=== PATIENT | female | born 1965 | race Caucasian/White ===

== ENCOUNTER → 2019-04-29 | Outpatient (CLI) | payer SELFPAY | END | disposition home or self-care (01) | PROVIDERS: Referring Provider Urology; Visit Provider Urology | DX: R31.9 Hematuria, unspecified (principal) | CPT/HCPCS: 87086; 87088 ==

== ENCOUNTER → 2019-05-07 | Outpatient (CLI) | payer SELFPAY | END | disposition home or self-care (01) | LOC: LAB.FUTURE 09:03 | PROVIDERS: Family Provider Family Medicine; PCP Family Medicine; Referring Provider Urology; Visit Provider Urology | DX: N39.0 Urinary tract infection, site not specified (principal) | CPT/HCPCS: 87077; 87086; 87088; 87186 ==

== ENCOUNTER → 2019-05-23 | Outpatient (CLI) | payer MEDICAID, SELFPAY ==
--- NOTE | 2019-05-23 14:32 | RAD_ITS ---
STUDY: X-RAY - ABDOMEN/PELVIS REASON FOR EXAM: Female, 54 years old. Kidney stones, left flank pain TECHNIQUE: Single AP view of the abdomen / pelvis. COMPARISON: None. FINDINGS: Lung bases are out of the tiviv-lc-dsns. There is a left-sided double-J stent which appears to be in appropriate position. There are small clusters of punctate calcifications in the kidney. One cluster measuring up to 5.5 mm the lower pole cluster measuring 1.0 cm. The right kidney is partially obscured. There are small calcific densities seen overlying the right side of the pelvis which may represent phleboliths versus stones. There is an unremarkable bowel gas pattern. There is no demonstrated free abdominal air. Normal soft tissue structures. Normal visualized osseous structures. RAD/Abdomen Single View IMPRESSION: Phleboliths versus ureteral stones overlying the right sacrum. Double-J stent. Multiple small stones left kidney as detailed above. Electronically Signed: Rowan Zee MD at 12:30 EDT Tel , Service support ,
== END | disposition home or self-care (01) ==
LOC: RAD.FUTURE 14:20
PROVIDERS: Family Provider Family Medicine; PCP Family Medicine; Referring Provider Urology; Visit Provider Urology
DX: N20.0 Calculus of kidney (principal)
CPT/HCPCS: 74018

== ENCOUNTER 2019-05-31 09:53 | Day surgery (SDC) | payer MEDICAID, SELFPAY ==
[2019-05-31 10:05] VITALS: BP 143/92; PULSE 77; RESP 16; TEMP 36.6; O2SAT 100; BMI 37.3
[2019-05-31] MEDS: Lactated Ringers 1,000 ML 100 ML IV ×2 (10:16→13:43)
[2019-05-31] MEDS: Lubricating Jelly 60 GM Tube 30 GM TOPICAL (12:52)
--- NOTE | 2019-05-31 12:53 | PCM.DC.URO ---
Discharge Diet: Light diet - advance as tolerated Discharge Activity: Return to Normal Activity Allergies/Adverse Reactions: Allergies erythromycin base Allergy (Verified 05/31/19 09:58) Hives Sulfa (Sulfonamide Antibiotics) Allergy (Verified 05/31/19 09:58) Hives Medications to take at Discharge Amlodipine [Norvasc] 10 mg PO DAILY 05/29/19 Metoprolol Tartrate [Lopressor (Beta [place])] 100 mg PO DAILY 05/29/19 Ciprofloxacin [Cipro] 500 mg PO BID #6 tab 05/31/19 Hydrocodone/Acetaminophen [[place] 5-325 Tablet] 1 ea PO Q4H PRN PRN 5 Days #20 tab 05/31/19 The following prescriptions were given: Ciprofloxacin [Cipro] 500 mg PO BID #6 tab Prescription Printed Hydrocodone/Acetaminophen [[place] 5-325 Tablet] 1 ea PO Q4H PRN PRN 5 Days #20 tab PRN Reason: Pain Prescription Printed Primary Care Physician: Anil Law MD [Primary Care Provider] - Test Results: Test results from this visit will be discussed in further detail at your follow-up appointment, if applicable. Please Follow Up With: Ja Field MD When: please call to make an appointment.
[2019-05-31] MEDS: Cefazolin 2 GM in 0.9% Normal Saline 100 ML IV (12:54)
[2019-05-31] MEDS: Ketorolac 15 MG/ML Vial IV (13:01)
--- NOTE | 2019-05-31 13:24 | OP.PCM_ITS ---
Report of Operation Date of Procedure: 05/31/19 Pre-Operative Diagnosis: Status post ESWL of large left renal calculi with multiple fragments Post-Operative Diagnosis: The same Surgery/Procedure Performed:: Second stage left ureteroscopy laser lithotripsy of stones, interpretation of fluoroscopic images retrograde pyelogram, left stent placement Description of Surgical Findings:: Indication this is a 54-year-old female had a very large stone in the left kidney underwent stent placement and shockwave lithotripsy on follow-up follow- up x-ray she still has significant stone fragments left in the kidney recommended we proceed with a second stage ureteroscopy to treat the remaining fragments. Also will change the stent to a new stent. 54-year-old female taken back to the operating room at the smooth induction of general anesthesia she was placed in dorsolithotomy position the urethra vaginal area prepped and draped in usual sterile fashion, went into the bladder with a 21 [place] rigid cystourethroscope scope grabbed the existing stent pulled out the meatus advance a wire up the stent and then over the wire went in with a flexible ureteroscope I then inspected the upper pole midpole lower pole of the left kidney found some fragments in the upper pole these were treated with laser lithotripsy and then found some large fragments in the lower pole these were treated laser lithotripsy after all these fragments are treated very small pieces that should pass on their own then a retrograde pyelogram was performed interpreted the fluoroscopic images then worked my way down the ureter but a wire up on the left side and then over the wire I placed a new stent is a 6 [place]ian by 26 cm stent. Left the string of the stent for easy extraction patient will see us next week with an x-ray and will plan to remove the stent at that point. Type of Anesthesia:: General Drains: stent left - Admit VTE Documentation VTE Present on Admission: No VTE Mechan Device Prophylaxis: SCD's
[2019-05-31 13:31] VITALS: BP 123/82; BP 143/92; PULSE 73; RESP 16; TEMP 36.3; O2SAT 98
[2019-05-31 13:49] VITALS: BP 125/84; BP 143/92; PULSE 63; RESP 16; TEMP 36.3; O2SAT 100
[2019-05-31 14:26] VITALS: BP 143/92; BP 157/85; PULSE 71; RESP 18; O2SAT 99
== END 2019-05-31 14:40 | disposition home or self-care (01) ==
LOC: SDC 09:53 → AC 09:54
PROVIDERS: Family Provider Family Medicine; PCP Family Medicine; Referring Provider Urology; Visit Provider Urology
PROC: 0TJ98ZZ Inspection of Ureter, Via Natural or Artificial Opening Endoscopic (ICD-10-PCS; CPT 52352; principal; 2019-05-31 13:10)
DX: N20.0 Calculus of kidney (principal); I10 Essential (primary) hypertension; F17.200 Nicotine dependence, unspecified, uncomplicated; Z79.2 Long term (current) use of antibiotics; Z79.899 Other long term (current) drug therapy
CPT/HCPCS: 00873; 52356; 76000; J7120; C2617; J2405

== ENCOUNTER → 2019-06-04 | Outpatient (CLI) | payer MEDICAID, SELFPAY ==
[2019-05-31 10:05] VITALS: BMI 37.3
--- NOTE | 2019-06-04 08:23 | RAD_ITS ---
STUDY: X-RAY - ABDOMEN/PELVIS REASON FOR EXAM: Female, 54 years old. Left-sided kidney stones. TECHNIQUE: Single AP view of the abdomen / pelvis. COMPARISON: Comparison is made with prior study dated May 23, 2019. FINDINGS: Normal visualized lung bases. There is a moderate amount of colonic fecal material. A left-sided double-J stent catheter is seen. This is unchanged. Once again, cluster of the calcifications in the lower pole calyx of the left kidney. This appears to have decreased in size as compared to prior study. Normal soft tissue structures. Normal visualized osseous structures. RAD/Abdomen Single View IMPRESSION: Stable appearance of the left double-J stent catheter. Apparent decrease in density of the calculi seen in the lower pole calyx of the left kidney. Electronically Signed: Anselmo Cobian, at 11:02 EDT , Service support ,
== END | disposition home or self-care (01) ==
LOC: RAD 07:52
PROVIDERS: Family Provider Family Medicine; PCP Family Medicine; Referring Provider Urology; Visit Provider Urology
DX: N20.0 Calculus of kidney (principal)
CPT/HCPCS: 74018

== ENCOUNTER → 2019-07-16 | Outpatient (CLI) | payer MEDICAID, SELFPAY | END | disposition home or self-care (01) | PROVIDERS: Family Provider Family Medicine; PCP Family Medicine; Referring Provider Urology; Visit Provider Urology | DX: N39.0 Urinary tract infection, site not specified (principal) | CPT/HCPCS: 87077; 87086; 87088; 87186 ==

== ENCOUNTER → 2020-04-04 08:46 | Outpatient (CLI) | payer MEDICAID, SELFPAY ==
--- NOTE | 2020-04-04 08:51 | US_ITS ---
HISTORY: Swelling left upper volar forearm Ultrasound of the left upper arm in the region of swelling No priors Findings: No delineated soft tissue mass or fluid collection is noted in the area of swelling. US/Ext Non Vasc Limited/Soft Tiss IMPRESSION: No acute pathology. If symptoms persist consider MRI with contrast for further evaluation at 0355 Reported and signed by: Rowan Gómez DO Electronically Signed: Rowan Gómez DO at 3:54 EDT Tel , Service support ,
== END ==
PROVIDERS: PCP Nurse Practitioner Family
DX: R22.32 Localized swelling, mass and lump, left upper limb (principal)
CPT/HCPCS: 76882

== ENCOUNTER → 2020-04-10 08:18 | Outpatient (CLI) | payer MEDICAID, SELFPAY ==
[2020-04-10 08:55] LABS: Erythrocyte Sedimentation Rate 13 mm/hr (0-30)
[2020-04-10 08:58] LABS: Absolute Lymphocyte Count 2.86 X10^3/uL (0.83-4.51); Absolute Neutrophil Count 7.2 X10^3/uL (2.0-7.7); Basophil# 0.13 X10^3/uL; Basophil% 1.2 % (0-1); Eosinophil# 0.32 X10^3/uL; Eosinophils% 2.9 % (0-5); Hematocrit 44.5 % (37-47); Hemoglobin 14.7 g/dL (12.0-15.0); Lymphocyte # 2.86 X10^3/ul (4.0); Lymphocyte % 25.7 % (19-41); Mean Corpuscular Volume 90.8 fL (81-99); Mean Platelet Vol. 9.8 fl (6.2-12.0); Monocyte# 0.63 X10^3/uL; Monocyte% 5.7 % (0-10); NRBC Flagged by Analyzer 0 % (0-5); Neutrophil # 7.17 X10^3/uL (2.7-7.7); Neutrophil % 64.1 % (47-70); Platelet Count 361 K/mm3 (150-450); RBC Distribution Width CV 13.5 % (11.6-14.6); RBC Distribution Width SD 44.5 fl (35.1-43.9); White Blood Count 11.2 K/mm3 (4.4-11.0)
[2020-04-10 09:17] LABS: AST(SGOT) 11 U/L (15-37); Alanine Aminotransfer ALT/SGPT 23 U/L (13-56); Albumin, Serum 3.5 g/dL (3.2-5.0); Alkaline Phosphatase 93 U/L (45-117); Anion Gap 5 (5-15); BUN 15 mg/dL (7-18); BUN/Creat Ratio 18.6 RATIO (10-20); CPK Total, Creatine Kinase 104 U/L (26-192); Calcium,Total 8.5 mg/dL (8.5-10.1); Chloride 109 mmol/L (98-107); Creatinine, Serum 0.81 mg/dL (0.55-1.02); EST Glomerular Filtration Rate 78 mL/min (>60); Est Glom Filt Rate - Afr Amer 94 mL/min (>60); Globulin 3.4 g/dL (2.2-4.2); Glucose 94 mg/dL (74-106); Potassium 4.4 mmol/L (3.5-5.1); Protein, Total 6.9 g/dL (6.4-8.2); Sodium Level 141 mmol/L (136-145)
[2020-04-11 12:22] LABS: ANTINUCLEAR ANTIBODIES DIRECT Negative (Negative)
== END ==
PROVIDERS: Visit Provider Nurse Practitioner Family
DX: M54.5 Low back pain (principal); R21 Rash and other nonspecific skin eruption; F33.0 Major depressive disorder, recurrent, mild
CPT/HCPCS: 36415; 80053; 82550; 85025; 85652; 86038

== ENCOUNTER 2020-04-30 14:13 | Emergency (ER) | payer MEDICAID, SELFPAY ==
[2020-04-30 14:15] VITALS: BP 174/104; PULSE 105; RESP 20; TEMP 36.5; O2SAT 99; BMI 41.3
--- NOTE | 2020-04-30 15:24 | ED.VIS.GEN ---
History of Present Illness Chief Complaint: Upper Extremity Injury Informant: Patient Narrative: 5-year-old female presenting with left upper arm pain in the medial aspect of her bicep. She feels like it is swelling. She has been seen by her PCP who did do a superficial ultrasound and did not find any abscess or sign of infection. Patient concerned that it still swelling. She is told that she needs an MRI her insurance did declined this. Patient has not been in physical therapy for this pain. She is concerned she has something deeper in her arm. She does have full range of motion. She has no numbness or tingling but does have radiation of pain up and down her arm at times. Past Medical History - Allergies and Home Meds Allergies/Adverse Reactions: Allergies erythromycin base Allergy (Verified 04/30/20 14:14) Hives Sulfa (Sulfonamide Antibiotics) Allergy (Verified 04/30/20 14:14) Hives Primary Care Physician: Sheyla De Los Santos [Primary Care Provider] - Prior records reviewed: Yes Past Medical History: - - Hypertension Surgical History: noncontributory Lives: With Family Smoking Status: Current some day smoker Alcohol: None Drugs: None Review of Systems General: Denies: Chills, Fever, Sweats Eyes: Denies: Visual changes - bilaterally, Diplopia ENT: Denies: Bilateral ear pain, Left ear pain, Right ear pain, Rhinorrhea, Sore throat, -, - Cardiovascular: Denies: Chest pain, Palpitations Respiratory: Denies: Dyspnea, Cough, Dyspnea on exertion Gastrointestinal: Reports: Abdominal pain Musculoskeletal: Reports: - - Left upper arm pain really between the bicep and tricep Physical Exam Vital Signs/Narrative: Vital Signs Temp Pulse Resp BP Pulse Ox 04/30/20 14:15 97.7 F L 105 H 20 H 174/104 H 99 General: Well nourished Head: Normocephalic, Atraumatic Eyes: Perrl, EOMI Cardiovascular: Regular rate, Regular rhythm Respiratory: No distress, CTA bilaterally Back: Nontender Extremities: - - Patient has tenderness to palpation over the medial aspect of the area between the bicep and tricep. There is no obvious mass or fluctuance. Joo's test on the left arm is normal. He has normal sensation and motor strength. Skin: Normal color, No rash Neurological: Alert, Oriented x3 Psychological: Normal affect Diagnostic/Tx/Re-eval Clinical Impression(s) from Imaging Studies Upper Extremity CTA 04/30/20 17:13 IMPRESSION: Normal CTA of the left upper extremity Electronically Signed: Piero Worrell MD at 18:35 EDT , Service support , - Medical Decision Making Patient presents with left arm pain which is been bothering her for over a month. She is had a superficial ultrasound which did not identify anything. Her PCP recommended an MRI and insurance to cancel. She had lab work done which was normal on an outpatient basis. Today I performed an ultrasound as well as CT imaging of her left upper extremity which showed no acute process. It is unclear what the source of her pain is. She says she is a [employer] and she possibly could have hurt herself at work but does not remember an acute injury. At this point I recommended to her that she follow-up with her PCP and get into physical therapy. Unable to this plan. She is discharged home in stable condition. Impression: 1. Left arm pain ED Disposition - Plan for ED Patient: Disposition: Home or Assisted Living Instructions: ED ACHING MUSCLES Referrals: Kevon Stoner,Sheyla Lucas [Primary Care Provider] -
--- NOTE | 2020-04-30 15:38 | VDUE_ITS ---
Reason For Study: SWELLING Left Proximal Left jugular vein is spontaneous, widely patent, phasic, with no intraluminal echogenicity noted. Left subclavian vein is spontaneous, widely patent, phasic, with no intraluminal echogenicity noted. Left Arm Left axillary vein is spontaneous, patent, phasic, competent, compressible and demonstrates augmentation. Left brachial vein is compressible. Left cephalic vein is compressible. Left basilic vein is compressible. Left Lower Arm Left radial vein is compressible. Left ulnar vein is compressible. Prelim to Dr. Ashby. Interpretation Summary No evidence for acute deep venous thrombosis[left] upper extremity with patent and compressible cephalic and basilic veins. Ordering Physician: Lazaro Driscoll Performed By: Ruiz Castillo RVT ?
--- NOTE | 2020-04-30 17:13 | CT_ITS ---
STUDY: CTA LEFT UPPER EXTREMITIES REASON FOR EXAM: Female, 55 years old. SWELLING/PAIN UPPER LEFT ARM X ONE MONTH RADIATION DOSAGE (If Supplied By Facility): CTDIvol = ( 18.26 ) mGy, DLP = ( 978.23 ) mGycm TECHNIQUE: Axial CT angiography, multi-detector data acquisition was obtained from the neck base through the hands following intravenous administration of 100 CC ISOVUE 370. mm axial images and MIP images were reconstructed from the axial data set. Post-processing of the angiographic images was performed, with multiplanar reformation and 3D reconstruction. Individualized dose optimization techniques were used for this CT. COMPARISON: None. FINDINGS: . Normal supraclavicular region without lymphadenopathy or soft tissue mass. Normal axillary region, without lymphadenopathy or soft tissue mass. Normal visualized osseous structures without a demonstrated destructive process. LEFT UPPER EXTREMITY: Normal subclavian artery, without soft or calcific atherosclerotic plaque formation, luminal stenosis or aneurysm. Normal axillary artery, without soft or calcific atherosclerotic plaque formation, luminal stenosis or aneurysm. Normal brachial artery, without soft or calcific atherosclerotic plaque formation, luminal stenosis or aneurysm. Normal brachial trifurcation. Normal radial artery, continuous with the palmar arch, without atherosclerotic plaque formation, luminal stenosis or aneurysm. Normal ulnar artery, continuous with the palmar arch, without atherosclerotic plaque formation, luminal stenosis or aneurysm. Normal osseous, muscular and subcutaneous structures in the left upper extremity. CT/CTA Upper Ext W/WO Contrast IMPRESSION: Normal CTA of the left upper extremity Electronically Signed: Piero Worrell MD at 18:35 EDT , Service support ,
[2020-04-30 19:37] VITALS: BP 169/109; PULSE 82; RESP 16; O2SAT 100
== END 2020-04-30 19:42 | disposition home or self-care (01) ==
PROVIDERS: Emergency Provider Student in an Organized Health Care Education/Training Program
DX: M79.622 Pain in left upper arm (principal); I10 Essential (primary) hypertension
CPT/HCPCS: 73206; 93971; 99282; Q9967

== ENCOUNTER 2020-05-14 07:52 | Inpatient (IN) | payer MEDICAID, SELFPAY ==
[2020-05-14] VITALS (15 sets, daily range): BP systolic 143–256; BP diastolic 67–139; PULSE 60–92; RESP 13–18; TEMP 36.6–37.1; O2SAT 92–99; BMI 39.0; BMI 42.9
--- NOTE | 2020-05-14 08:05 | EKG12_ITS ---
Test Reason : CP Blood Pressure : / mmHG Vent. Rate : 087 BPM Atrial Rate : 087 BPM P-R Int : 190 ms QRS Dur : 088 ms QT Int : 364 ms P-R-T Axes : 047 -27 080 degrees QTc Int : 438 ms Normal sinus rhythm Consider Left ventricular hypertrophy Poor R- wave Progression Nonspecific ST/ T wave abnormality Abnormal ECG Confirmed by SHAUN MARKS, ALETHEA ([id number]), newspaper editor ANTHONY CARLOS ([id number]) on 05/20/2020 10:28:03 AM Referred By: LAVELLE Confirmed By:ALETHEA DUNN MD
[2020-05-14] MEDS: Nitroglycerin SL (ED/IMG/CATH) 0.4 MG TABLET SUBLINGUAL ×2 (08:10→08:15)
[2020-05-14 08:12] LABS: Absolute Lymphocyte Count 2.81 X10^3/uL (0.83-4.51); Absolute Neutrophil Count 7.3 X10^3/uL (2.0-7.7); Basophil# 0.12 X10^3/uL; Basophil% 1.1 % (0-1); Eosinophil# 0.34 X10^3/uL; Eosinophils% 3.1 % (0-5); Hematocrit 44.4 % (37-47); Hemoglobin 14.9 g/dL (12.0-15.0); Lymphocyte # 2.81 X10^3/ul (4.0); Lymphocyte % 25.3 % (19-41); Mean Corp Hgb Conc 33.6 g/dL (32-36); Mean Corpuscular Hgb 30.1 pg (27.0-32.0); Mean Corpuscular Volume 89.7 fL (81-99); Mean Platelet Vol. 9.7 fl (6.2-12.0); Monocyte# 0.53 X10^3/uL; Monocyte% 4.8 % (0-10); NRBC Flagged by Analyzer 0 % (0-5); Neutrophil # 7.25 X10^3/uL (2.7-7.7); Neutrophil % 65.3 % (47-70); Platelet Count 353 K/mm3 (150-450); RBC Distribution Width SD 42.6 fl (35.1-43.9); Red Blood Count 4.95 M/mm3 (4.2-5.4); White Blood Count 11.1 K/mm3 (4.4-11.0)
[2020-05-14] MEDS: 0.9% Normal Saline 1,000 ML 150 ML IV (08:14)
--- NOTE | 2020-05-14 08:20 | RAD_ITS ---
STUDY: X-RAY CHEST REASON FOR EXAM: Female, 55 years old. CHEST PAIN STARTING LAST NIGHT TECHNIQUE: Single AP portable view of the chest. COMPARISON: None. FINDINGS: EKG electrodes are seen. The lungs are clear and expanded. Scattered calcified granulomas. There is no demonstrated pleural abnormality. Normal size heart. Normal mediastinum and yasmine. Normal visualized pulmonary arteries. There is atherosclerotic tortuosity of the aortic arch and descending thoracic aorta. Normal visualized thoracic spine. Normal visualized ribs, clavicles, and shoulders. There is no demonstrated abnormality of the visualized soft tissue structures of the upper abdomen. RAD/Chest 1 View (Portable) IMPRESSION: No acute abnormality is seen. Electronically Signed: Anselmo Cobian, at 8:35 EDT , Service support ,
[2020-05-14 08:25] LABS: D-Dimer Quantitative (DVT/PE) 0.48 FEU/ug/m (0.27-0.49)
[2020-05-14 08:30] LABS: Anion Gap 4 (5-15); BUN 14 mg/dL (7-18); BUN/Creat Ratio 17.4 RATIO (10-20); Calcium,Total 9.6 mg/dL (8.5-10.1); Chloride 109 mmol/L (98-107); EST Glomerular Filtration Rate 78 mL/min (>60); Est Glom Filt Rate - Afr Amer 94 mL/min (>60); Estimated Creatinine Clearance 55.73 ml/min; Glucose 127 mg/dL (74-106); Potassium 4.2 mmol/L (3.5-5.1); Sodium Level 139 mmol/L (136-145)
--- NOTE | 2020-05-14 09:03 | ED.DCSUM_ITS ---
- ER Visit Summary Date of Service: 05/14/20 Chief Complaint: [Chest pain] History of Present Illness: The patient is a 55 F [presents with chest pain that started around 5 PM yesterday. Patient states she is also had pain off and on for about a month. She describes a pressure or tightness that radiates into her neck and jaw. Patient has history of hypertension. Patient is a smoker. Patient states that she had a heart catheterization she believes about 20 years ago and was unremarkable. Patient denies recent travel or surgery. Patient states she has she had a recent COVID-19 test that was negative because of where she works. Patient did take 1 full dose aspirin while at work. 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 Patient complains of exertional dyspnea and discomfort with activity.] Physical Examination: [HEENT-PERRLA, EOMI. Cranial nerves II through XII grossly intact. TMs clear. Mucous membranes moist. No adenopathy. Cardiovascular-regular rate and rhythm without murmur or ectopy Lungs-clear to auscultation, chest wall stable without crepitus or subcu emphysema Abdomen-normoactive bowel sounds, soft, nontender, no rebound or rigidity, no peritoneal signs. Extremities-intact ?4, normal range of motion, normal pulses, atraumatic] Test Results: [EKG obtained on arrival showed a sinus rhythm with some LVH and some nonspecific ST changes noted. CBC with differential was normal. Chemistries unremarkable. D-dimer was normal. Troponin was less than 0.015. Chest x-ray showed nothing acute.] Emergency Department Course and Treatment: [Patient received sublingual nitro and her pain essentially resolved. Patient's blood pressure normalized while in the department.] Treatment Plan: [Admit] Disposition: [Admit] Impression: [Chest pain-rule out acute coronary syndrome] This note was generated with [employer] dictation software. It may contain incorrect words, spelling, and punctuation that were not noted in review of the chart prior to signing ED Disposition - Plan for ED Patient: Referrals: Kevon Stoner,Sheyla Lucas [Primary Care Provider] -
--- NOTE | 2020-05-14 10:19 | PCM.HP.STD ---
Problem List (1) Chest pain Status: Acute (2) Tobacco abuse Status: Chronic (3) Depression Status: Chronic (4) Hypertension Status: Chronic History of Present Illness Date of Admission: 05/14/20 Chief Complaint: Chest pain. The patient is a 55 year old F with past medical history as mentioned above presented to the emergency room because of chest pain. Her symptoms started yesterday afternoon around 5 PM with chest pain, started at rest, retrosternal chest pain, dull aching pain, 4-5 out of 10 in severity, radiates to the neck and both sides of his jaw, associated with shortness of breath, has been constant since yesterday but mild with intermittent increasing in severity. At this time, chest pain is gone after she received sublingual nitroglycerin. In the emergency department, her blood pressure was elevated, later improved, other vital signs are stable. Routine blood work was unremarkable. EKG revealed normal sinus rhythm, normal AR interval, normal QRS, normal QTC, nonspecific T wave changes. First troponin is negative. Chest x-ray showed no acute findings. D-dimer was negative. She is being admitted for chest pain for evaluation. Past Medical History Past Medical History (Chronic Problems): Chronic Problems Tobacco abuse (Chronic) Depression (Chronic) Hypertension (Chronic) Allergies erythromycin base Allergy (Verified 05/14/20 07:55) Hives Sulfa (Sulfonamide Antibiotics) Allergy (Verified 05/14/20 07:55) Hives Home Medications: Ambulatory Orders Medication Instructions Recorded Amlodipine [Norvasc] 10 mg PO DAILY 05/29/19 Metoprolol Tartrate [Lopressor 100 mg PO DAILY 05/29/19 (Beta [place])] Meloxicam 15 mg PO DAILY 04/30/20 traZODone [Desyrel] 25 mg PO QHS 04/30/20 Surgical History: noncontributory Psychiatric History: No pertinent psych hx [employer] 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 Paternal History Items: No pertinent history Review of Systems Constitutional: Denies: Anorexia, Chills, Fever, Weakness Eyes: Denies: Blurred vision, Double vision, Drainage, Eyelid Inflammation HEENT: Denies: Difficulty Hearing, Ear Pain, Eye Pain, Nasal bleeding, Nasal Congestion, Sinus Drainage Cardiovascular: Reports: Chest Pain, Chest Pressure. Denies: Edema, Heaviness, Light Headedness, Orthopnea, Paroxysmal Noc. Dyspnea, Syncope Respiratory: Reports: Shortness of Breath. Denies: Cough, Pleuritic Pain, Sputum production, Wheezing Gastrointestinal: Denies: Abdominal Pain, Constipation, Diarrhea, Nausea, Vomiting Genitourinary: Denies: Dysuria, Frequency, Hematuria Musculoskeletal: Denies: Arm Pain, Back Pain, Foot Pain Skin: Denies: Dryness, Rash Neurological: Denies: Balance problems, Double vision, Change in Speech, Slurred speech, Headaches, Incoordination, Numbness Psychiatric: Reports: Depression. Denies: Anxiety Endocrine: Denies: Change in Body Habitus, Polydipsia, Polyuria VTE Information - Inpt Only VTE Present on Admission: No VTE Mechan Device Prophylaxis: None VTE Pharm Prophylaxis ordered?: No Patient Problems: Active and Suspected Problems Chest pain (Acute) - Physical Exam Vitals/I&O's: Vital Signs Temp Pulse Resp BP Pulse Ox 97.8 F 75 13 143/67 H 92 05/14/20 09:56 05/14/20 09:56 05/14/20 09:56 05/14/20 09:56 05/14/20 09:56 Oxygen Delivery Method Room Air Weight: 219 lb 12.814 oz Body Mass Index (BMI) 42.9 General: Alert, Oriented x3, Cooperative, No apparent distress HEENT: Atraumatic, PERRLA, EOMI, Normocephalic Oral: Moist Mucosa, No Gingival or Mucosal Lesions/ Ulcerations Neck: Supple, No JVD, Negative Carotid Bruits, Trachea Midline, Thyroid Normal Size and Texture Lungs: Clear to auscultation, No rhonchi, No wheeze, No rales Cardiovascular: Regular rate, Regular Rhythm, Normal S1, Normal S2, PMI Normal Abdomen: Bowel Sounds Present, Soft, Non Tender, Non-Distended, No Hepato-splenomegaly, Obese Extremities: No clubbing, No cyanosis, No edema Skin: No rashes, No breakdown Lymphatic: No Cervical, Supraclavicular, or Inguinal Adenopathy Neurological: Cranial nerves II-XII grossly intact, Motor Exam 5/5 strength throughout Psych/Mental Status: Normal Affect, Appropriate, Alert and oriented to time, place, person, mood and affect Laboratory Results 05/14/20 08:05: WBC 11.1 H, RBC 4.95, Hgb 14.9, Hct 44.4, MCV 89.7, MCH 30.1, MCHC 33.6, RDW Std Deviation 42.6, RDW Coeff of James 13.0, Plt Count 353, MPV 9.7, Immature Gran % (Auto) 0.400, Neut % (Auto) 65.3, Lymph % (Auto) 25.3, [place] % (Auto) 4.8, Eos % (Auto) 3.1, Baso % (Auto) 1.1 H, Absolute Neuts (auto) 7.3, Absolute Lymphs (auto) 2.81, Nucleated RBC % 0 05/14/20 08:05: D-Dimer Quant (PE/DVT) 0.48 05/14/20 08:05: Sodium 139, Potassium 4.2, Chloride 109 H, Carbon Dioxide 26.0, Anion Gap 4 L, BUN 14, Creatinine 0.80, Estim Creat Clear Calc 55.73, Est GFR (MDRD) Af Amer 94, Est GFR (MDRD) Non-Af 78, BUN/Creatinine Ratio 17.4, Glucose 127 H, Calcium 9.6, Troponin I < 0.015 Clinical Impression(s) from Imaging Studies Chest X-Ray 05/14/20 08:20 IMPRESSION: No acute abnormality is seen. Electronically Signed: Anselmo Aranza, at 8:35 EDT , Service support , Current Medications Acetaminophen (Tylenol) 650 mg PO Q6H PRN PRN PRN Reason: Pain Score 1-10/Temp > 100.7 F Amlodipine Besylate (Norvasc) 10 mg PO DAILY KRISTIAN Aspirin (Ecotrin) 81 mg PO DAILY@0800 KRISTIAN Hydralazine HCl (Apresoline Iv) 10 mg IV Q6H PRN PRN PRN Reason: for SBP>160 Sodium Chloride () 1,000 mls @ 75 mls/hr IV .[id number] KRISTIAN Stop: 05/14/20 23:15 Meloxicam (Mobic) 15 mg PO DAILY [facility] Nitroglycerin (Nitrostat) 0.4 mg SUBLINGUAL Q5M PRN PRN Reason: CHEST PAIN Ondansetron HCl (Zofran) 4 mg IV Q8H PRN PRN PRN Reason: NAUSEA/VOMITING Senna/Docusate Sodium (Senokot-S, Ethel-Colace) 2 tablet PO BID PRN PRN PRN Reason: Constipation Trazodone HCl (Desyrel) 25 mg PO QHS KRISTIAN Zolpidem Tartrate (Ambien (Generic)) 5 mg PO QHS PRN PRN PRN Reason: INSOMNIA Assessment/Plan All Active Problems Chest pain (Acute) This is a 55 years old female patient presented to the emergency room because of chest pain and she is being admitted for evaluation. #1 chest pain: Risk factors are age, history of hypertension, smoking as well as family history of premature CAD. Her mother because of massive heart attack at age of 52. Initial EKG reviewed as above. First troponin is negative. Chest x-ray showed no acute findings. Upon arrival to ED, blood pressure was elevated at 256/139. Patient received sublingual nitro in the ED, chest pain resolved and his blood pressure improved. Plan: Admit to PCU observation, cardiac monitoring, serial cardiac enzymes, lipid profile, start baby aspirin, nuclear stress test if cardiac enzymes are negative. #2 hypertension: Was elevated in the ED, improved after sublingual nitro. Plan to continue Norvasc, IV adenosine PRN, hold metoprolol for stress test. #3 depression: Continue trazodone. #4 tobacco abuse: NicoDerm patch if desired. #5 DVT prophylaxis: Low risk patient, no prophylaxis indicated. This note was generated with [employer] dictation software. It may contain incorrect words, spelling, and punctuation that were not noted in checking the note before signing. OBSV E&M: [id number] Initial observation care L3
--- NOTE | 2020-05-14 10:43 | EKG12_ITS ---
Test Reason : CP Blood Pressure : / mmHG Vent. Rate : 066 BPM Atrial Rate : 066 BPM P-R Int : 184 ms QRS Dur : 094 ms QT Int : 418 ms P-R-T Axes : 047 -25 002 degrees QTc Int : 438 ms Normal sinus rhythm Voltage criteria for left ventricular hypertrophy Abnormal ECG Confirmed by SHAUN MARKS, ALETHEA ([id number]), graphic editor MICKY SANDERS ([id number]) on 05/21/2020 1:30:53 PM Referred By: Confirmed By:ALETHEA DUNN MD
[2020-05-14] MEDS: amLODIPine 10 MG Tablet PO (11:15)
[2020-05-14] MEDS: Aspirin E.C. 81 MG Tablet PO (11:15)
[2020-05-14] MEDS: Meloxicam 15 MG Tablet PO (11:15)
[2020-05-14 11:37] LABS: Cholesterol 162 mg/dL (200); High Density Lipoprotein 28 mg/dL; Triglycerides 173 mg/dL; Very Low Density Lipoprotein 35 mg/dL (5-40)
[2020-05-14] MEDS: Acetaminophen 325 MG Tablet 650 MG PO (12:52)
[2020-05-14] MEDS: traZODone 50 MG Tablet 25 MG PO (22:25)
[2020-05-15] VITALS (23 sets, daily range): BP systolic 133–167; BP diastolic 71–108; PULSE 59–88; RESP 16–19; TEMP 36.3–36.8; O2SAT 96–100
[2020-05-15] MEDS: Acetaminophen 325 MG Tablet 650 MG PO (04:51)
[2020-05-15] MEDS: 0.9% Saline Lock 10 ML Syringe IV (04:52)
--- NOTE | 2020-05-15 05:55 | EKG12_ITS ---
Test Reason : CP Blood Pressure : / mmHG Vent. Rate : 078 BPM Atrial Rate : 078 BPM P-R Int : 136 ms QRS Dur : 086 ms QT Int : 394 ms P-R-T Axes : 023 -27 068 degrees QTc Int : 449 ms Normal sinus rhythm Left ventricular hypertrophy with repolarization abnormality Abnormal ECG When compared with ECG of 15-MAY-2020 02:52, MANUAL COMPARISON REQUIRED, DATA IS UNCONFIRMED Confirmed by BREE MARKS, RUBY ([id number]), video news editor ANTHONY CARLOS ([id number]) on 05/21/2020 9:44:13 AM Referred By: CHARLENE Confirmed By:RUBY GIRON MD
[2020-05-15] MEDS: Aspirin E.C. 81 MG Tablet PO (06:31)
[2020-05-15] MEDS: amLODIPine 10 MG Tablet PO (10:04)
[2020-05-15] MEDS: Meloxicam 15 MG Tablet PO (10:04)
--- NOTE | 2020-05-15 10:43 | DCINST_ITS ---
- Discharge Diagnoses Current Active Problems: Current Active and Chronic Problems Chest pain (Acute) Tobacco abuse (Chronic) Depression (Chronic) Hypertension (Chronic) You will use the following diet at home:: Cardiac Your food should be the consistency of: Regular Discharge Activity: Return to Normal Activity Weight Bearing Status: Full weight bearing Call your doctor if you observe: Fever of 101 or Higher, Shortness of breath, Dizziness, Fainting spells, Chest pain, Increased palpitations (irregular heartbeat) Instructions: Taking Your Blood Pressure, Controlling High Blood Pressure Allergies/Adverse Reactions: Allergies erythromycin base Allergy (Verified 05/14/20 07:55) Hives Sulfa (Sulfonamide Antibiotics) Allergy (Verified 05/14/20 07:55) Hives Medications to take at Discharge Amlodipine [Norvasc] 10 mg PO DAILY 05/29/19 Metoprolol Tartrate [Lopressor (beta rangel)] 100 mg PO DAILY 05/29/19 Meloxicam 15 mg PO DAILY 04/30/20 traZODone [Desyrel] 25 mg PO QHS 04/30/20 Primary Care Physician: [facility] Sheyla Infante [Primary Care Provider] - Please follow up with your Primary Care Physician in: 1-2 weeks. Test Results: Test results from this visit will be discussed in further detail at your follow- up appointment, if applicable.
--- NOTE | 2020-05-15 11:24 | PHA.DC.MR ---
Pharmacy Service has performed discharge medication reconciliation for this patient. The patient's discharge medication list was reviewed for discrepancies and discrepancies were resolved. Home Medications Amlodipine [Norvasc] 10 mg PO DAILY 05/29/19 Metoprolol Tartrate [Lopressor (beta rangel)] 100 mg PO DAILY 05/29/19 Meloxicam 15 mg PO DAILY 04/30/20 traZODone [Desyrel] 25 mg PO QHS 04/30/20
--- NOTE | 2020-05-15 14:11 | CASEMGMT ---
According to the [facility] website, the following are in-network tertiary facilities: [facility], [facility], [facility], [facility], [facility], [facility], [facility], [facility], [facility], and . Pramod CABRERA CM
--- NOTE | 2020-05-15 14:16 | CON.PCM_ITS ---
Reason for Consult Date of Consultation: 05/15/20 Reason for Consultation: chest pain, abnormal stress test History of Present Illness: The patient is a 55 year old F with past medical history as mentioned above presented to the emergency room because of chest pain. Her symptoms started yesterday afternoon around 5 PM with chest pain, started at rest, retrosternal chest pain, dull aching pain, 4-5 out of 10 in severity, radiates to the neck and both sides of his jaw, associated with shortness of breath, has been constant since yesterday but mild with intermittent increasing in severity. At this time, chest pain is gone after she received sublingual nitroglycerin. In the emergency department, her blood pressure was elevated, later improved, other vital signs are stable. Routine blood work was unremarkable. EKG revealed normal sinus rhythm, normal OH interval, normal QRS, normal QTC, nonspecific T wave changes. First troponin is negative. Chest x-ray showed no acute findings. D-dimer was negative. She is being admitted for chest pain for evaluation. Stress test revealed mild apical ischemia with an EF of 33%. Review of systems: All systems reviewed. All systems are negative except that in the HPI Past Medical History Allergies/Adverse Reactions: Allergies erythromycin base Allergy (Verified 05/14/20 07:55) Hives Sulfa (Sulfonamide Antibiotics) Allergy (Verified 05/14/20 07:55) Hives Home Medications: Ambulatory Orders Medication Instructions Recorded Amlodipine [Norvasc] 10 mg PO DAILY 05/29/19 Metoprolol Tartrate [Lopressor 100 mg PO DAILY 05/29/19 (beta rangel)] Meloxicam 15 mg PO DAILY 04/30/20 traZODone [Desyrel] 25 mg PO QHS 04/30/20 Past Medical History (Chronic Problems): Chronic Problems Tobacco abuse (Chronic) Depression (Chronic) Hypertension (Chronic) Surgical History: noncontributory Psychiatric History: No pertinent psych 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 Paternal History Items: No pertinent history Lives: Spouse/ Significant Other Smoking Status: Current every day smoker Tobacco Use: Cigarettes Alcohol: None Drugs: None Objective: Vital Signs Temp Pulse Resp BP Pulse Ox 98 F 61 16 160/87 H 97 05/15/20 10:00 05/15/20 10:00 05/15/20 10:00 05/15/20 10:00 05/15/20 10:00 Oxygen Delivery Method Room Air Weight: 219 lb 12.814 oz Body Mass Index (BMI) 42.9 Intake and Output for Last 24 Hours 05/13/20 05/14/20 05/15/20 23:59 23:59 23:59 Intake Total 1145 / 1145 0 / 0 Balance 1145 / 1145 0 / 0 General: Awake, Alert, Oriented x 3 HEENT: Atraumatic Oral: Moist Mucosa Lungs: Clear to auscultation Cardiovascular: Regular Rhythm Abdomen: Soft Skin: No Rashes Psych/Mental Status: Appropriate 05/14/20 14:25: Troponin I < 0.015 Rhythm: EKG: ECHO: Stress Test: Cardiac Cath: PCI: CT Surgery: Holter monitor: EPS: PPM: CXR: Chest CT Scan: Assessment/Plan 1. Chest pain: Patient's blood pressure was uncontrolled. Her pain could have been related to that. However her stress test is abnormal with an EF of 33% and possible apical ischemia. We will proceed with coronary angiography to evaluate this further. Risks and benefits discussed with the patient in detail.
--- NOTE | 2020-05-15 15:34 | PCM.PROGNOTE ---
Patient Problems: Active and Suspected Problems CAD (coronary artery disease) (Acute) Chest pain (Acute) Subjective: Chief complaint: Follow-up after admission for unstable angina, status post cardiac catheterization. Patient seen and examined. No acute events overnight. Today, she has no more chest pain. Denied shortness of breath, dizziness or lightheadedness. She underwent cardiac catheterization, found to have 2 lesions at distal RCA and LAD, status post stenting of the RCA lesions. Her vital signs are stable. - Physical Exam Vitals/I&O's: Vital Signs Temp Pulse Resp BP Pulse Ox 97.8 F 78 18 146/101 H 98 05/15/20 15:25 05/15/20 15:25 05/15/20 15:25 05/15/20 15:25 05/15/20 15:25 Oxygen Delivery Method Room Air Weight: 219 lb 12.814 oz Body Mass Index (BMI) 42.9 Intake and Output for Last 24 Hours 05/13/20 05/14/20 05/15/20 23:59 23:59 23:59 Intake Total 1145 / 1145 240 / 240 Balance 1145 / 1145 240 / 240 General: Alert, Oriented x3, Cooperative, No apparent distress HEENT: Atraumatic, PERRLA, EOMI, Normocephalic Oral: Moist Mucosa, No Gingival or Mucosal Lesions/ Ulcerations Neck: Supple, No JVD, Negative Carotid Bruits, Trachea Midline, Thyroid Normal Size and Texture Lungs: Clear to auscultation, Normal air movement, No rhonchi, No wheeze, No rales Cardiovascular: Regular rate, Regular Rhythm, Normal S1, Normal S2, No murmurs, PMI Normal Abdomen: Bowel Sounds Present, Soft, Non Tender, Non-Distended, No Hepato-splenomegaly Extremities: No clubbing, No cyanosis, No edema Skin: No rashes, No breakdown Lymphatic: No Cervical, Supraclavicular, or Inguinal Adenopathy Neurological: Cranial nerves II-XII grossly intact, Neuro grossly intact Psych/Mental Status: Normal Affect, Appropriate, Alert and oriented to time, place, person, mood and affect Current Medications Acetaminophen (Tylenol) 650 mg PO Q6H PRN PRN PRN Reason: Pain Score 1-10/Temp > 100.7 F Last Admin: 05/15/20 04:51 Dose: 650 mg Documented by: Amlodipine Besylate (Norvasc) 10 mg PO DAILY [facility] Last Admin: 05/15/20 10:04 Dose: 10 mg Documented by: Aspirin (Ecotrin) 81 mg PO DAILY@0800 [facility] Last Admin: 05/15/20 06:31 Dose: 81 mg Documented by: Hydralazine HCl (Apresoline Iv) 10 mg IV Q6H PRN PRN PRN Reason: for SBP>160 Sodium Chloride () 250 mls @ 15 mls/hr IV .[id number] PRN PRN Reason: Saline Flush Sodium Chloride () 250 mls @ 15 mls/hr IV .[id number] PRN PRN Reason: Additional IVPB Infusion Nitroglycerin (Nitrostat) 0.4 mg SUBLINGUAL Q5M PRN PRN Reason: CHEST PAIN Ondansetron HCl (Zofran) 4 mg IV Q8H PRN PRN PRN Reason: NAUSEA/VOMITING Senna/Docusate Sodium (Senokot-S, Ethel-Colace) 2 tablet PO BID PRN PRN PRN Reason: Constipation Sodium Chloride () 10 - 40 ml IV UD PRN PRN Reason: SALINE FLUSH Last Admin: 05/15/20 04:52 Dose: 10 ml Documented by: Trazodone HCl (Desyrel) 25 mg PO QHS [facility] Last Admin: 05/14/20 22:25 Dose: 25 mg Documented by: Zolpidem Tartrate (Ambien (Generic)) 5 mg PO QHS PRN PRN PRN Reason: INSOMNIA Medical Necessity - Tobacco Use Smoking Status: Current every day smoker Tobacco Use: Cigarettes Assessment/Plan All Active Problems CAD (coronary artery disease) (Acute) Chest pain (Acute) This is a 55 years old female patient presented to the emergency room because of chest pain and she is being admitted for evaluation. #1 Unstable angina/coronary artery disease: Status post cardiac catheterization, found to have 95% stenosis of distal RCA status post stenting x2, she has another lesion with 80% stenosis of the LAD, no interventions performed for this lesion. Currently, she is on aspirin, statins, beta-blockers, lisinopril and Brilinta. Her vital signs are stable. She has no more chest pain. Cardiology on the case. Plan to continue same treatment, IV fluids, repeat CBC and BMP tomorrow morning, anticipate discharge home tomorrow morning. #2 hypertension: Still on the higher side but it is getting better. She will be started on lisinopril and metoprolol, continue Norvasc, IV hydralazine PRN. #3 depression: Continue trazodone. #4 tobacco abuse: NicoDerm patch if desired. #5 DVT prophylaxis: Low risk patient, no prophylaxis indicated. This note was generated with [employer] dictation software. It may contain incorrect words, spelling, and punctuation that were not noted in checking the note before signing. Inpatient E&M: 40570 Subs Hosp L2
--- NOTE | 2020-05-15 15:45 | EKG12_ITS ---
Test Reason : AM EKG Blood Pressure : / mmHG Vent. Rate : 065 BPM Atrial Rate : 065 BPM P-R Int : 182 ms QRS Dur : 100 ms QT Int : 440 ms P-R-T Axes : 057 -29 -27 degrees QTc Int : 457 ms Normal sinus rhythm Voltage criteria for left ventricular hypertrophy Abnormal ECG Confirmed by SHAUN MARKS, ALETHEA ([id number]), industrial editor ANTHONY CARLOS ([id number]) on 05/21/2020 9:55:49 AM Referred By: WILSON Confirmed By:ALETHEA DUNN MD
--- NOTE | 2020-05-15 15:51 | CRPHASE1_ITS ---
Patient Communication PHII Cardiac Rehab Discussed with Patient:: Yes Guide to Cardiac Rehab Given to Patient:: Yes Cardiac Rehab Facility Choice List Given to Patient:: Yes Choice Program [facility] CR PHII:: Communication Given to CR, Refer to [facility] Hot Top Liner:: Bebe Tsai Phase II Cardiac Rehab:: Yes Sessions:: 36 sessions - 3 days/wk, 12 weeks Risk Factors/Lifestyle Laboratory Values: Cardiac Rehab Phase I Labs Triglycerides 173 mg/dL (-199) 05/14/20 10:38 Cholesterol 162 mg/dL (200) 05/14/20 10:38 LDL Cholesterol 99 mg/dL (0-130) 05/14/20 10:38 HDL Cholesterol 28 mg/dL (40-) L 05/14/20 10:38 Cardiac Rehabilitation Info Cardiac Rehabilitation Program Information: Cardiac Rehabilitation is important for patients like you who are recovering from a heart problem. Cardiac rehabilitation programs are recognized as integral to the cont inued care of the patient with coronary heart disease. The cardiac rehabilitation program is designed to optimize a patient's physical, psychological, and social functioning. Health child care teacher work in cardiac rehabilitation programs and assist you with getting the treatments you need to get stronger and healthier - like exercise, healthy eating habits, and medications. Cardiac rehabilitation has been show to help people with heart problems live longer and have better life enjoyment than people who do not go to cardiac rehabilitation. Please contact the Cardiac Rehabilitation Program at [facility] at in two weeks if you have not heard from them.
--- NOTE | 2020-05-15 15:52 | CRPH1.INST_ITS ---
General Education CAD and cardiac anatomy and function:: Patient communicates acknowledgment Explanation of diagnoses and procedures:: Patient communicates acknowledgment Sign/Symptoms of PR:: Patient communicates acknowledgment Antiplatelet therapy: Patient communicates acknowledgment Proper use of NTG-SL: Patient communicates acknowledgment Emergency procedures and activation of EMS: Patient communicates acknowledgment Compliance of all prescribed medications: Patient communicates acknowledgment Smoking Patient Nicotine/Smoking Risk Factors Are:: Cigarettes Recommendations Include:: Smoking cessation strategies/Smoking packet, Second- hand smoke recommendation, Participation in a smoking cessation program Nicotine/Smoking Response Code:: Patient communicates acknowledgment, Needs reinforcement Dyslipidemia Patient Dyslipidemia Risk Factors Are:: Total Cholesterol, Triglycerides, HDL, LDL Recommendations Include:: Lipid profile provided Dyslipidemia Response Code:: Patient communicates acknowledgment Overweight/Obesity Patient Overweight/Obesity Risk Factors Are:: Obesity - > or = 30 - BMI 42.9 Recommendations Include:: Weight loss of 5-10%, Reduced calorie diet, Exercise 5-7 times/week Overweight/Obesity:: Patient communicates acknowledgment, Needs reinforcement Hypertension Recommendations Include:: Maintain BP <130/85, BP <130/80 if diabetic, DASH dietary guidelines, Decrease/maintain normal body weight Hypertension:: Patient communicates acknowledgment, Needs reinforcement
[2020-05-15] MEDS: 0.9% Normal Saline 1,000 ML 60 ML IV (15:56)
[2020-05-15 16:20] LABS: Hematocrit 47.1 % (37-47); Hemoglobin 15.6 g/dL (12.0-15.0); Mean Corp Hgb Conc 33.1 g/dL (32-36); Mean Corpuscular Hgb 29.7 pg (27.0-32.0); Mean Corpuscular Volume 89.7 fL (81-99); Mean Platelet Vol. 9.7 fl (6.2-12.0); Platelet Count 344 K/mm3 (150-450); RBC Distribution Width CV 12.8 % (11.6-14.6); RBC Distribution Width SD 41.9 fl (35.1-43.9); Red Blood Count 5.25 M/mm3 (4.2-5.4); White Blood Count 11.5 K/mm3 (4.4-11.0)
[2020-05-15] MEDS: LORazepam 0.5 MG Tablet PO ×2 (16:33→22:15)
[2020-05-15] MEDS: hydrALAZINE 20 MG/ML Vial 10 MG IV (16:34)
--- NOTE | 2020-05-15 17:08 | STRESSREP ---
Stress Test Report Date: [05/15/2020] Procedure: Pharmacologic stress nuclear imaging study Indications: [Chest pain] Consent: Per the patient Procedure: The patient underwent pharmacologic (Regadenoson) evaluation with a peak heart rate of [88] beats per minute ([53]%predicted maximal heart rate) and a peak blood pressure of [154/90] mmHg. The baseline ECG demonstrated [Normal sinus rhythm]. EKG during lexiscan infusion revealed [No significant ischemic changes]. EKG post infusion revealed [No significant ischemic changes] [There were no cardiac dysrhythmias pretest, during pharmacologic infusion, or recovery]. [There was no complaint of chest discomfort during pharmacologic infusion or recovery]. The examination was discontinued secondary to completion of protocol. Impression: 1. Lexiscan stress test test is[Negative] for Lexiscan infusion induced EKG changes of ischemia. 2. Lexiscan stress test test[Is negative] for Lexiscan infusion induced chest pain. 3. Results of the nuclear portion of the test is as below Myocardial perfusion imaging study: Technique: The patient was injected with [14] millicuries of technetium 99m Cardiolite and subsequently rest SPECT Cardiolite nuclear imaging was obtained in the horizontal long, vertical long, and short axis views. The patient underwent pharmacologic (Regadenoson) evaluation. Please see above for details. The patient was injected with [44.9] millicuries of technetium 99m Cardiolite and subsequently stress SPECT Cardiolite nuclear imaging was obtained in the horizontal long, vertical long, and short axis views. A gated Cardiolite study at peak stress was obtained. Interpretation: Rest and stress SPECT Cardiolite nuclear imaging status post realignment, normalization, and attenuation correction demonstrate [Mildly decreased radioisotope uptake in the apex on the rest images with further decrease in the radioisotope uptake on the stress images suggestive of mild apical ischemia.]. Gated images reveal[Global hypokinesis]. The reported LVEF is [33]%. Impression: 1. There is [Evidence of mild apical ischemia]. 2. Estimated ejection fraction is [33%]. This note was generated with [employer] software. It may contain incorrect words, spelling, and punctuation that were not noted in checking the note before signing.
--- NOTE | 2020-05-15 17:27 | NURSING ---
Pt back in bed after walk to bathroom. C/o dizziness at first getting up.
--- NOTE | 2020-05-15 17:43 | CL.I_ITS ---
Patient Name: ANIRUDH CHAVES Study Date: 05/15/2020 Performing: Sean Tsai MD Ht: 60 inches 152 cm : 1965 Wt: 220.8 lbs 100 kg Age: 55 Gender: female BSA: 1.94 PROCEDURE(S) PERFORMED [id number]/LV [id number] W OR WO PTCA, SINGLE CORONARY ARTERY CLINICAL PROFILE AND CO-MORBIDITIES Indications: ACS <= 24 hrs Heart Failure: None Stress/Imaging Date: 05/15/20 Stress Test with SPECT MPI: Positive High Risk CAD Presentations: Unstable angina. CONCLUSIONS CAD as described. LVEF is 45-50% with inferior hypokinesis. No significant or MR. 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 should return for PCI of LAD in 3-4 weeks DESCRIPTION OF PROCEDURE The patient arrived to the procedure lab. The risks and benefits of the procedure as well as a full d escription of our services here and lack of surgical backup were fully explained to the patient and/o r their significant other prior to the catheterization. The Timeout was completed, verifying the raad ect patient and procedure. The patient's procedural site was prepped and draped in the usual fashion. Local anesthetic was given subcutaneously to right radial region with Lidocaine 2%. Using a modified Seldinger technique, arterial access was obtained via the right radial artery, a 6Fr sheath was inse rted.. Left Coronary Artery selective angiography was performed in multiple views using a 5 Fr. JL3. 5 catheter. Left Ventriculography was performed in WEBER projection using a 5 Fr. JR4. Right Coronary A rtery selective angiography was then performed in multiple views using a 5 Fr. JR 4 catheterThe image s were reviewed and options discussed. A decision was then made to proceed with an Intervention, IVUS or other adjunct procedure. JR4 Guide catheter was inserted and engaged into the RCA. [employer] [place] Guide wire was advanced t o the RCA. Emerge 2.5 x 12 Balloon catheter was inserted. Balloon catheter was advanced across lesion in the right coronary, distal. PTCA balloon inflated at 6 atms for 10 secs. PTCA balloon inflated at 8 atms for 17 secs. Synergy 3.0 x 38 Drug Eluting stent was inserted. Drug Eluting stent was advance d across the lesion in the right coronary, distal. Synergy 3.0 x 20 Drug Eluting stent was inserted. Drug Eluting stent was advanced across the lesion in the right coronary, distal. The arterial sheat h was pulled and a TR Band was applied for hemostasis CORONARY ANGIOGRAPHY DOMINANCE: Right Dominant LEFT HEART ASSESSMENT Left Ventricular Ejection Fraction: by LV Gram 45-50 % Inferior Hypokinesis - Mild LEFT MAIN: No significant disease noted LEFT ANTERIOR DESCENDING ARTERY: PROX LAD: 80 % Stenosis CIRCUMFLEX ARTERY: Mild luminal irregularities OM 2: Distal - 60-70 % Stenosis RIGHT CORONARY ARTERY: DISTAL RCA: 95 % Stenosis VALVE FINDINGS: No Aortic Valve Stenosis No Mitral Insufficency INTERVENTION INFORMATION LESION SITE: RCA (Distal) Lesion Complexity: High/C, chronic total occlusion: No, lesion at bifurcation: No, lesion length: 50 mm, culprit lesion: Yes, Previously treated lesion: No Pre Stenosis: 95 % Pre intervention EFRAÍN flow: 3 PROCEDURE: Drug Eluting Stent with pre dilatation. Post Stenosis: 0 % Post intervention EFRAÍN flow: 3 Lesion Devices: Lux .014 BMW [place] Straight 190cm Cardinal 6 Fr JR4 100cm Guide Catheter Boo Sci EMERGE MR 2.50x12 BALLOON Boo Sci Synergy MR JONATHON 3.00x38 Boo Sci Synergy MR JONATHON 3.00x20 COMPLICATIONS No Complications PROCEDURE MEDICATIONS Fentanyl 50 mcg IV Versed 1 mg IV Oxygen: 2 L/min via nasal cannula Brilinta 180 mg PO @ 05/15/2020 15:02:57 Heparin given IA 05/15/2020 14:29:08 Heparin 5000 unit(s) IV 05/15/2020 14:43:56 Verapamil 2.5mg, Ntg 100mcgs, 3000 units of Heparin given IA 05/15/2020 14:29:08 IV Bolus: .9 NaCl 300 ml total 05/15/2020 15:04:57 SUMMARY OF HEMODYNAMIC DATA Time AIR REST ECG 14:07:10 AO 126/81 (103) SA 14:30:18 LV 180/-3, 10 14:38:55 LV 184/1, 13 14:39:02 LV 149/9, 23 14:39:49 LVp 178/0, 16 14:40:01 AOp 169/71 (112) 14:40:06 Signed By Sean Tsai MD On 05/15/2020 17:42:25 Sean Tsai MD
[2020-05-15] MEDS: traZODone 50 MG Tablet 25 MG PO (20:50)
[2020-05-15] MEDS: Metoprolol Tartrate 50 MG Tablet PO (20:50)
[2020-05-15] MEDS: Atorvastatin Calcium 20 MG Tablet PO (20:50)
--- NOTE | 2020-05-15 20:51 | NURSING ---
Pt requesting to have night meds given at this time.
[2020-05-16] VITALS (8 sets, daily range): BP systolic 133–148; BP diastolic 60–81; PULSE 62–87; RESP 16–18; TEMP 36.6–36.8; O2SAT 98–100
[2020-05-16 06:26] LABS: ALB/GLOB Ratio 1.1 RATIO (0.9-2.4); AST(SGOT) 19 U/L (15-37); Alanine Aminotransfer ALT/SGPT 27 U/L (13-56); Albumin, Serum 3.4 g/dL (3.2-5.0); Alkaline Phosphatase 76 U/L (45-117); Anion Gap 6 (5-15); BUN 14 mg/dL (7-18); BUN/Creat Ratio 19.5 RATIO (10-20); Calcium,Total 8.2 mg/dL (8.5-10.1); Chloride 107 mmol/L (98-107); Creatinine, Serum 0.72 mg/dL (0.55-1.02); EST Glomerular Filtration Rate 89 mL/min (>60); Est Glom Filt Rate - Afr Amer 108 mL/min (>60); Estimated Creatinine Clearance 61.92 ml/min; Globulin 3.2 g/dL (2.2-4.2); Glucose 135 mg/dL (74-106); Potassium 3.5 mmol/L (3.5-5.1); Protein, Total 6.6 g/dL (6.4-8.2); Sodium Level 138 mmol/L (136-145)
[2020-05-16 08:18] LABS: Absolute Lymphocyte Count 1.49 X10^3/uL (0.83-4.51); Basophil# 0.09 X10^3/uL; Eosinophil# 0.25 X10^3/uL; Eosinophils% 2.7 % (0-5); Hematocrit 43.6 % (37-47); Hemoglobin 14.4 g/dL (12.0-15.0); Lymphocyte # 1.49 X10^3/ul (4.0); Lymphocyte % 15.8 % (19-41); Mean Corpuscular Hgb 29.8 pg (27.0-32.0); Mean Corpuscular Volume 90.1 fL (81-99); Mean Platelet Vol. 10.2 fl (6.2-12.0); Monocyte# 0.58 X10^3/uL; Monocyte% 6.2 % (0-10); NRBC Flagged by Analyzer 0 % (0-5); Neutrophil # 6.96 X10^3/uL (2.7-7.7); Neutrophil % 73.9 % (47-70); Platelet Count 317 K/mm3 (150-450); RBC Distribution Width CV 12.9 % (11.6-14.6); RBC Distribution Width SD 42.4 fl (35.1-43.9); Red Blood Count 4.84 M/mm3 (4.2-5.4); White Blood Count 9.4 K/mm3 (4.4-11.0)
[2020-05-16] MEDS: Lisinopril 20 MG Tablet PO (09:06)
[2020-05-16] MEDS: TICAGRELOR 90 MG TABLET PO (09:06)
[2020-05-16] MEDS: amLODIPine 10 MG Tablet PO (09:06)
[2020-05-16] MEDS: Aspirin E.C. 81 MG Tablet PO (09:06)
[2020-05-16] MEDS: Metoprolol Tartrate 50 MG Tablet PO (09:06)
--- NOTE | 2020-05-16 10:00 | EKG12_ITS ---
Test Reason : AM EKG Blood Pressure : / mmHG Vent. Rate : 068 BPM Atrial Rate : 068 BPM P-R Int : 168 ms QRS Dur : 098 ms QT Int : 418 ms P-R-T Axes : 038 -32 -25 degrees QTc Int : 444 ms Normal sinus rhythm Left axis deviation Voltage criteria for left ventricular hypertrophy Abnormal ECG When compared with ECG of 15-MAY-2020 17:04, MANUAL COMPARISON REQUIRED, DATA IS UNCONFIRMED Confirmed by JOSEPH MARKS, LION ([id number]), avid editor LUANNE DUMONT ([id number]) on 05/22/2020 1:39:23 PM Referred By: WILSON Confirmed By:ARAMIS RUIZ MD
--- NOTE | 2020-05-16 10:48 | DCINST_ITS ---
- Discharge Diagnoses Current Active Problems: Current Active and Chronic Problems CAD (coronary artery disease) (Acute) Chest pain (Acute) Tobacco abuse (Chronic) Depression (Chronic) Hypertension (Chronic) You will use the following diet at home:: Cardiac Your food should be the consistency of: Regular Discharge Activity: Return to Normal Activity Weight Bearing Status: Full weight bearing Call your doctor if you observe: Fever of 101 or Higher, Shortness of breath, Dizziness, Fainting spells, Chest pain, Increased palpitations (irregular heartbeat) Instructions: Controlling High Blood Pressure, Taking Your Blood Pressure, Coronary Stents Allergies/Adverse Reactions: Allergies erythromycin base Allergy (Verified 05/14/20 07:55) Hives Sulfa (Sulfonamide Antibiotics) Allergy (Verified 05/14/20 07:55) Hives Medications to take at Discharge Amlodipine [Norvasc] 10 mg PO DAILY 05/29/19 traZODone [Desyrel] 25 mg PO QHS 04/30/20 Aspirin E.C. [Ecotrin] 81 mg PO DAILY@0800 #90 tab 05/16/20 Atorvastatin Calcium [Lipitor] 20 mg PO QHS #90 tab 05/16/20 Lisinopril [Zestril] 20 mg PO DAILY #90 tab 05/16/20 Metoprolol Tartrate [Lopressor (beta rangel)] 50 mg PO BID #90 tab 05/16/20 Ticagrelor [Brilinta] 90 mg PO BID #90 tab 05/16/20 The following prescriptions were given: Ticagrelor [Brilinta] 90 mg PO BID #90 tab Transmission Status: Pending to [facility] Aspirin E.C. [Ecotrin] 81 mg PO DAILY@0800 #90 tab Transmission Status: Pending to [facility] Atorvastatin Calcium [Lipitor] 20 mg PO QHS #90 tab Transmission Status: Pending to [facility] Metoprolol Tartrate [Lopressor (beta rangel)] 50 mg PO BID #90 tab Transmission Status: Pending to [facility] Lisinopril [Zestril] 20 mg PO DAILY #90 tab Transmission Status: Pending to [facility] Primary Care Physician: [facility] Sheyla Infante [Primary Care Provider] - Please follow up with your Primary Care Physician in: 1-2 weeks. Test Results: Test results from this visit will be discussed in further detail at your follow- up appointment, if applicable. Please Follow Up With: Bebe Tsai MD When: 3-4 weeks.
--- NOTE | 2020-05-16 13:52 | DS.PCM_ITS ---
Discharge Date and Diagnosis - Problem List Patient Problems: Active and Suspected Problems CAD (coronary artery disease) (Acute) Chest pain (Acute) Date of Admission: 05/14/20 Date of Discharge: 05/16/20 - Primary Discharge Diagnosis Acute Problems: Active Problems #1 unstable angina. #2 coronary artery disease, new diagnosis, acute. - Secondary Discharge Diagnosis Chronic Problems: Chronic Problems Tobacco abuse (Chronic) Depression (Chronic) Hypertension (Chronic) Hospital Course and Treatment Imaging Results: Clinical Impression(s) from Imaging Studies Chest X-Ray 05/14/20 08:20 IMPRESSION: No acute abnormality is seen. Electronically Signed: Anselmo Cobian, at 8:35 EDT , Service support , Dr. Tsai, cardiology. Procedures: Cardiac catheterization, EKG, Stress test Summary of Care Provided: Patient seen on the day of discharge and appeared to be stable to be discharged home. She denied any more chest pain, no shortness of breath. She stated that she did not feel very well as today for a long time. Her vital signs are stable. The patient is a 55 year old F presented to the emergency room because of chest pain and she was admitted for evaluation. Upon arrival to ED, her blood pressure was elevated. Her initial EKG revealed no acute segment changes. Troponin was negative x3. Chest x-ray showed no acute findings. After admission, her blood pressure improved. Her routine blood work was unremarkable. Her LFT was normal. Lipid profile revealed total cholesterol of 162, triglyceride of 173, LDL cholesterol of 99 and HDL cholesterol of 28. Patient underwent nuclear stress test that was reported as abnormal and showing findings suggestive of mild apical ischemia and ejection fraction was 33% on stress test. There was no evidence of acute CHF. Cardiology consulted and patient underwent cardiac catheterization that revealed 95% stenosis of distal RCA, 80% stenosis of LAD and 60 to 70% stenosis of distal obtuse marginal. Ejection fraction on cardiac cath was 45-50 % she had PCI and stents x2 to distal RCA. She was treated with aspirin, Lipitor, lisinopril, metoprolol and Brilinta. Her symptoms resolved, and she felt significantly better. Her vital signs remained stable. Patient discharged home in a stable medical condition, discharged on aspirin, statins, beta-blockers, lisinopril and Brilinta, counseled about smoking, plan to follow-up with cardiology in 2 to 4 weeks for possible repeat cardiac catheterization for intervention to the LAD, recommended follow-up with PCP in 1 to 2 weeks. Patient Problems: Active and Suspected Problems CAD (coronary artery disease) (Acute) Chest pain (Acute) - Physical Exam Vitals/I&O's: Vital Signs Temp Pulse Resp BP Pulse Ox 98.3 F 80 18 133/81 H 100 05/16/20 11:40 05/16/20 11:40 05/16/20 11:40 05/16/20 11:40 05/16/20 11:40 Oxygen Delivery Method Room Air Weight: 219 lb 12.814 oz Body Mass Index (BMI) 42.9 Intake and Output for Last 24 Hours 05/14/20 05/15/20 05/16/20 23:59 23:59 23:59 Intake Total 1145 / 1145 879.4 / 1501.4 1217 / 1217 Balance 1145 / 1145 879.4 / 1501.4 1217 / 1217 General: Alert, Oriented x3, Cooperative, No apparent distress HEENT: Atraumatic, PERRLA, EOMI, Normocephalic Oral: Moist Mucosa, No Gingival or Mucosal Lesions/ Ulcerations Neck: Supple, No JVD, Negative Carotid Bruits, Trachea Midline, Thyroid Normal Size and Texture Lungs: Clear to auscultation, Normal air movement, No rhonchi, No wheeze, No rales Cardiovascular: Regular rate, Regular Rhythm, Normal S1, Normal S2, PMI Normal Abdomen: Bowel Sounds Present, Soft, Non Tender, Non-Distended, No Hepato- splenomegaly, Obese Extremities: No clubbing, No cyanosis, No edema Skin: No rashes, No breakdown Lymphatic: No Cervical, Supraclavicular, or Inguinal Adenopathy Neurological: Cranial nerves II-XII grossly intact, Neuro grossly intact Psych/Mental Status: Normal Affect, Appropriate Laboratory Results 05/15/20 16:00: WBC 11.5 H, RBC 5.25, Hgb 15.6 H, Hct 47.1 H, MCV 89.7, MCH 29.7, MCHC 33.1, RDW Std Deviation 41.9, RDW Coeff of James 12.8, Plt Count 344, MPV 9.7 05/16/20 05:44: WBC 9.4, RBC 4.84, Hgb 14.4, Hct 43.6, MCV 90.1, MCH 29.8, MCHC 33.0, RDW Std Deviation 42.4, RDW Coeff of James 12.9, Plt Count 317, MPV 10.2, Immature Gran % (Auto) 0.400, Neut % (Auto) 73.9 H, Lymph % (Auto) 15.8 L, [place] % (Auto) 6.2, Eos % (Auto) 2.7, Baso % (Auto) 1.0, Absolute Neuts (auto) 7.0, Absolute Lymphs (auto) 1.49, Nucleated RBC % 0 05/16/20 05:44: Sodium 138, Potassium 3.5, Chloride 107, Carbon Dioxide 25.0, Anion Gap 6, BUN 14, Creatinine 0.72, Estim Creat Clear Calc 61.92, Est GFR (MDRD) Af Amer 108, Est GFR (MDRD) Non-Af 89, BUN/Creatinine Ratio 19.5, Glucose 135 H, Calcium 8.2 L, Total Bilirubin 0.40, AST 19, ALT 27, Alkaline Phosphatase 76, Total Protein 6.6, Albumin 3.4, Globulin 3.2, Albumin/Globulin Ratio 1.1 Current Medications Acetaminophen (Tylenol) 650 mg PO Q6H PRN PRN PRN Reason: Pain Score 1-10/Temp > 100.7 F Last Admin: 05/15/20 04:51 Dose: 650 mg Documented by: Amlodipine Besylate (Norvasc) 10 mg PO DAILY [facility] Last Admin: 05/16/20 09:06 Dose: 10 mg Documented by: Aspirin (Ecotrin) 81 mg PO DAILY@0800 [facility] Last Admin: 05/16/20 09:06 Dose: 81 mg Documented by: Atorvastatin Calcium (Lipitor) 20 mg PO QHS [facility] Last Admin: 05/15/20 20:50 Dose: 20 mg Documented by: Atropine Sulfate () 0.5 mg IV UD PRN PRN Reason: HR <50 bpm Heparin Sodium (Beef Lung) (Heparin 500 Unit/5 Ml (100/Ml)) 500 unit IV UD PRN PRN Reason: HEPARIN FLUSH Hydralazine HCl (Apresoline Iv) 10 mg IV Q6H PRN PRN PRN Reason: for SBP>160 Last Admin: 05/15/20 16:34 Dose: 10 mg Documented by: Sodium Chloride () 250 mls @ 15 mls/hr IV .[id number] PRN PRN Reason: Saline Flush Sodium Chloride () 250 mls @ 15 mls/hr IV .[id number] PRN PRN Reason: Additional IVPB Infusion Labetalol HCl (Trandate) 5 mg IV X1 PRN PRN Reason: SBP > 160 when pulling sheath Stop: 05/17/20 15:32 Lisinopril (Zestril) 20 mg PO DAILY [facility] Last Admin: 05/16/20 09:06 Dose: 20 mg Documented by: Lorazepam (Ativan) 0.5 mg PO BID PRN PRN PRN Reason: ANXIETY Last Admin: 05/15/20 22:15 Dose: 0.5 mg Documented by: Metoprolol Tartrate (Lopressor (Beta Juana)) 50 mg PO BID [facility] Last Admin: 05/16/20 09:06 Dose: 50 mg Documented by: Nitroglycerin (Nitrostat) 0.4 mg SUBLINGUAL Q5M PRN PRN Reason: CHEST PAIN Ondansetron HCl (Zofran) 4 mg IV Q8H PRN PRN PRN Reason: NAUSEA/VOMITING Senna/Docusate Sodium (Senokot-S, Ethel-Colace) 2 tablet PO BID PRN PRN PRN Reason: Constipation Sodium Chloride () 10 - 40 ml IV UD PRN PRN Reason: SALINE FLUSH Last Admin: 05/15/20 04:52 Dose: 10 ml Documented by: Sodium Chloride () 500 ml IV BOLUS PRN PRN Reason: VASO-VAGAL PROTOCOL Ticagrelor (Brilinta) 90 mg PO BID [facility] Last Admin: 05/16/20 09:06 Dose: 90 mg Documented by: Trazodone HCl (Desyrel) 25 mg PO QHS [facility] Last Admin: 05/15/20 20:50 Dose: 25 mg Documented by: Zolpidem Tartrate (Ambien (Generic)) 5 mg PO QHS PRN PRN PRN Reason: INSOMNIA Discharge Activity: Return to Normal Activity Weight Bearing Status: Full weight bearing Call your doctor if you observe: Fever of 101 or Higher, Shortness of breath, Dizziness, Fainting spells, Chest pain, Increased palpitations (irregular heartbeat) Home Medications: Medications to take at Discharge Amlodipine [Norvasc] 10 mg PO DAILY 05/29/19 traZODone [Desyrel] 25 mg PO QHS 04/30/20 Aspirin E.C. [Ecotrin] 81 mg PO DAILY@0800 #90 tab 05/16/20 Atorvastatin Calcium [Lipitor] 20 mg PO QHS #90 tab 05/16/20 Lisinopril [Zestril] 20 mg PO DAILY #90 tab 05/16/20 Metoprolol Tartrate [Lopressor (beta juana)] 50 mg PO BID #90 tab 05/16/20 Ticagrelor [Brilinta] 90 mg PO BID #90 tab 05/16/20 Following Prescriptions Were Given to Patient: Ticagrelor [Brilinta] 90 mg PO BID #90 tab Transmission Status: Received by [address] Aspirin E.C. [Ecotrin] 81 mg PO DAILY@0800 #90 tab Transmission Status: Received by [address] Atorvastatin Calcium [Lipitor] 20 mg PO QHS #90 tab Transmission Status: Received by [address] Metoprolol Tartrate [Lopressor (beta juana)] 50 mg PO BID #90 tab Transmission Status: Received by [address] Lisinopril [Zestril] 20 mg PO DAILY #90 tab Transmission Status: Received by [address] Primary Care Physician: [facility] Sheyla Infante [Primary Care Provider] - Please follow up with your Primary Care Physician in: 1-2 weeks. Please Follow Up With: Bebe Tsai MD When: 3-4 weeks. Patient Instructions: Coronary Stents, Controlling High Blood Pressure, Taking Your Blood Pressure Disposition: Home Minutes spent on discharge:: 32 Patient Condition:: Stable Medical Necessity - Tobacco Use Smoking Status: Current every day smoker Tobacco Use: Cigarettes Meaningful Use Info Meaningful Use Diagnoses (Choose all that apply): None applicable Inpatient E&M: 05828 Disch Hosp
--- NOTE | 2020-05-16 14:30 | NURSING ---
Elieser bailey cared given to patient.
== END 2020-05-16 10:49 | disposition home or self-care (01) | DRG 175 ==
LOC: ED 08:23 → PCU 09:19
PROVIDERS: Specialist; Admitting Provider Hospitalist; Emergency Provider Emergency Medicine; Visit Provider Hospitalist
DX: I25.110 Atherosclerotic heart disease of native coronary artery with unstable angina pectoris (principal); F32.9 Major depressive disorder, single episode, unspecified; I10 Essential (primary) hypertension; F17.210 Nicotine dependence, cigarettes, uncomplicated
CPT/HCPCS: 36415; 71045; 78452; 80048; 80053; 80061; 84484; 85025; 85027; 85379; 92928; 93005; 93017; 93458; 99152; 99153; 99285; 99406; A9500; J7030; J7040; Q9967; A4216; C1725; C1769; C1874; C1887; C1894; C9600; J1327; J2785

== ENCOUNTER 2020-06-04 09:48 | Day surgery (SDC) | payer MEDICAID, SELFPAY ==
[2020-05-14 09:56] VITALS: BMI 42.9
[2020-06-03 08:20] VITALS: BMI 43.0
--- NOTE | 2020-06-03 12:00 | HP.PCM_ITS ---
History and Physical Date of Admission: 06/04/20 History of Present Illness: The patient is a 55 year old F with past medical history as mentioned below who presented to the emergency room on 05/15/2020 because of chest pain. Her symptoms started 05/14/2020 afternoon around 5 PM with chest pain, started at rest, retrosternal chest pain, dull aching pain, 4-5 out of 10 in severity, radiates to the neck and both sides of his jaw, associated with shortness of breath, has been constant since but mild with intermittent increasing in severity. At this time, chest pain is gone after she received sublingual nitroglycerin. In the emergency department, her blood pressure was elevated, later improved, other vital signs are stable. Routine blood work was unremarkable. EKG revealed normal sinus rhythm, normal IL interval, normal QRS, normal QTC, nonspecific T wave changes. First troponin is negative. Chest x-ray showed no acute findings. D-dimer was negative. She was being admitted for chest pain for evaluation. Stress test revealed mild apical ischemia with an EF of 33%. She underwent heart catheterization on 05/15/2020 that resulted in drug-eluting stent to distal RCA. It was recommended she return to catheterization lab for a staged PCI to LAD in 3-4 weeks. She presents today for such procedure. She denies chest, arm, jaw, or neck discomfort. Her exercise tolerance is stable. She denies symptoms of CHF, palpitations, lightheadedness, dizziness, near syncope, or syncopal episodes. She denies edema or claudication issues. She denies orthopnea, PND, fever, chills, blood in urine, blood in stool, myalgia, or unexplainable fatigue. 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 Paternal History Items: No pertinent history Lives: Spouse/ Significant Other Smoking Status: Current every day smoker Tobacco Use: Cigarettes Alcohol: None Drugs: None Objective: Vital Signs: See EMR General: Awake, Alert, Oriented x 3 HEENT: Atraumatic Oral: Moist Mucosa Lungs: Clear to auscultation Cardiovascular: Regular Rhythm Abdomen: Soft Skin: No Rashes Psych/Mental Status: Appropriate 05/14/20 14:25: Troponin I < 0.015 Rhythm: EKG: ECHO: Stress Test: Cardiac Cath: PCI: CT Surgery: Holter monitor: EPS: PPM: CXR: Chest CT Scan: Assessment/Plan 1. Atherosclerotic coronary artery disease: Patient underwent stenting on 05/15/2020 to distal RCA. She will proceed with staged procedure/stenting to LAD. She will continue to follow on outpatient basis. She will continue current medical therapy which includes aspirin, atorvastatin, lisinopril, metoprolol tartrate, and Brilinta. Procedure Criteria Procedure Type: Elective COVID Risk Discussion: The surgeon/proceduralist and patient have discussed in detail the risk of exposure to and/or potential harm posed by the COVID-19 virus with having a surgery/procedure at this time versus the risk of delaying the s urgery/procedure. It is not possible to know either the risk of delaying the surgery or procedure or chance of getting an infection with perfect accuracy, but a joint decision was made between the patient and the surgeon/proceduralist to proceed at this time with the scheduled surgery/procedure as indicated on the consent form.
[2020-06-03 12:15] VITALS: BP 171/93; PULSE 70; RESP 16; TEMP 36.9; O2SAT 98
[2020-06-04] VITALS (16 sets, daily range): BP systolic 85–179; BP diastolic 68–96; PULSE 59–88; RESP 11–27; TEMP 36.3–36.6; O2SAT 96–100
--- NOTE | 2020-06-04 12:30 | EKG12_ITS ---
Test Reason : ABNORMAL STRESS Blood Pressure : / mmHG Vent. Rate : 072 BPM Atrial Rate : 072 BPM P-R Int : 182 ms QRS Dur : 106 ms QT Int : 398 ms P-R-T Axes : 042 -33 059 degrees QTc Int : 435 ms Normal sinus rhythm Left axis deviation Voltage criteria for left ventricular hypertrophy Abnormal ECG When compared with ECG of 16-MAY-2020 05:37, T wave inversion no longer evident in Inferior leads Confirmed by BREE MARKS, RUBY ([id number]), video effects editor LUANNE DUMONT ([id number]) on 06/09/2020 12:56:28 PM Referred By: Bebe Tsai Confirmed By:RUBY GIRON MD
--- NOTE | 2020-06-04 12:41 | CL.I_ITS ---
Patient Name: ANIRUDH CHAVES Study Date: 06/04/2020 Performing: Sean Tsai MD Ht: 60 inches 152 cm : 1965 Wt: 220.8 lbs 100 kg Age: 55 Gender: female BSA: 1.94 PROCEDURE(S) PERFORMED [id number] W OR WO PTCA, SINGLE CORONARY ARTERY CLINICAL PROFILE AND CO-MORBIDITIES Indications: staged PCI of LAD stenosis Heart Failure: None Stress/Imaging Stress/Image Study Performed: No CAD Presentations: Unstable angina. CONCLUSIONS Successful JONATHON to pLAD RECOMMENDATIONS DESCRIPTION OF PROCEDURE The patient arrived to the procedure lab. The risks and benefits of the procedure as well as a full d escription of our services here and current unavailability of surgical backup were fully explained to the patient and/or their significant other prior to the catheterization. The Timeout was completed, verifying the correct patient and procedure. The patient's procedural site was prepped and draped in the usual fashion. Local anesthetic was given subcutaneously to right brachial region with Lidocaine 2%. Using a modified Seldinger technique, arterial access was obtained via the right radial artery, a 6Fr sheath was inserted.. xb 3 cordis Guide catheter was inserted and engaged into the LCA. bmw Guide wire was advanced to the LAD. PTCA balloon inflated at 6 atms for 12 secs. PTCA balloon inflated at 6 atms for 9 secs. Ang iogram performed post balloon dilatation. synergy 3.5 x 28 Drug Eluting stent was advanced across the lesion in the LAD, proximal. Angiogram performed post stent deployment. The arterial sheath was pul led and a TR Band was applied for hemostasis INTERVENTION INFORMATION LESION SITE: LAD (Proximal) Lesion Complexity: High/C, chronic total occlusion: No, lesion at bifurcation: No, thrombus present: No, lesion length: 25 mm, culprit lesion: Yes, Previously treated lesion: No Pre Stenosis: 80 % Pre intervention EFRAÍN flow: 3 PROCEDURE: Drug Eluting Stent with pre dilatation. Post Stenosis: 0 % Post intervention EFRAÍN flow: 3 Lesion Devices: Cardinal 6 Fr XB3.0 100cm Guide Catheter Lux .014 [employer] [place] Straight 190cm Boo Sci EMERGE MR 3.00x20 BALLOON Boo Sci Synergy MR JONATHON 3.50x28 COMPLICATIONS No Complications PROCEDURE MEDICATIONS Versed 1 mg IV Fentanyl 50 mcg IV Oxygen: 2 L/min via nasal cannula Heparin 3000 unit(s) IV 06/04/2020 11:30:34 SUMMARY OF HEMODYNAMIC DATA Time AIR REST ECG 10:13:33 AO 120/76 (97) SA 11:32:25 Signed By Sean Tsai MD On 06/04/2020 12:40:17 Sean Tsai MD
[2020-06-04] MEDS: 0.9% Saline Lock 10 ML Syringe IV ×2 (13:26→15:11)
[2020-06-04] MEDS: LORazepam 2 MG/ML Syringe 0.5 MG IV (13:26)
[2020-06-04] MEDS: 0.9% Normal Saline 1,000 ML 100 ML IV (13:27)
--- NOTE | 2020-06-04 13:46 | CRPHASE1 ---
Patient Communication Former Patient:: Phase I - Staged PCI. CR booklet given to Patient 3 week prior. PHII Cardiac Rehab Discussed with Patient:: Yes Guide to Cardiac Rehab Given to Patient:: Yes - Given to Pt. following prior PCI 3 weeks past. Cardiac Rehab Facility Choice List Given to Patient:: Yes Choice Program [facility] CR PHII:: Communication Given to CR Healthcare Customer Service:: Bebe Tsai Phase II Cardiac Rehab:: Yes Sessions:: 36 sessions - 3 days/wk, 12 weeks Risk Factors/Lifestyle Smoking Status: Current every day smoker Second-Hand Smoke:: No Hx Hypertension: Yes Hx Diabetes Mellitus Type 1: No Hx Diabetes Mellitus Type 2: No Hx Metabolic Disorders: No Hx Dyslipidemia: Yes Hx Obesity: Yes Past Cardiac Illness: Coronary Artery Disease, Myocardial Infarction, Previous PCI w/Stent Phase I Education Given On:: [place], Nutrition, Antiplatelet medication, Smoking cessation Issues Affecting Care:: None Knowledge of Condition:: Yes Cardiac Rehabilitation Info Cardiac Rehabilitation Program Information: Cardiac Rehabilitation is important for patients like you who are recovering from a heart problem. Cardiac rehabilitation programs are recognized as integral to the continued care of the patient with coronary heart disease. The cardiac rehabilitation program is designed to optimize a patient's physical, psychological, and social functioning. Health healthcare network pricing consultant work in cardiac rehabilitation programs and assist you with getting the treatments you need to get stronger and healthier - like exercise, healthy eating habits, and medications. Cardiac rehabilitation has been show to help people with heart problems live longer and have better life enjoyment than people who do not go to cardiac rehabilitation. Please contact the Cardiac Rehabilitation Program at [facility] at in two weeks if you have not heard from them.
--- NOTE | 2020-06-04 13:49 | CRPH1.INSTRU ---
General Education CAD and cardiac anatomy and function:: Patient communicates acknowledgment Explanation of diagnoses and procedures:: Patient communicates acknowledgment Sign/Symptoms of NV:: Patient communicates acknowledgment Antiplatelet therapy: Patient communicates acknowledgment Proper use of NTG-SL: Patient communicates acknowledgment Emergency procedures and activation of EMS: Patient communicates acknowledgment Compliance of all prescribed medications: Patient communicates acknowledgment Smoking Patient Nicotine/Smoking Risk Factors Are:: Cigarettes Recommendations Include:: Smoking cessation strategies/Smoking packet, Participation in a smoking cessation program, Previous smoker; encourage continued cessation Nicotine/Smoking Response Code:: Patient communicates acknowledgment Dyslipidemia Patient Dyslipidemia Risk Factors Are:: HDL Recommendations Include:: Lipid profile not available, Reviewed NCEP/ATP guidelines, Therapeutic Lifestyle Change dietary guidelines Dyslipidemia Response Code:: Patient communicates acknowledgment Overweight/Obesity Patient Overweight/Obesity Risk Factors Are:: Obesity - > or = 30 Recommendations Include:: Weight loss of 5-10%, Reduced calorie diet, Exercise 5-7 times/week Overweight/Obesity:: Patient communicates acknowledgment Hypertension Recommendations Include:: Maintain BP <130/85, DASH dietary guidelines, Decrease/maintain normal body weight, Moderation of ETOH Hypertension:: Patient communicates acknowledgment Sedentary Patient Sedentary Risk Factors Are:: Lack of regular exercise Recommendations Include:: Aerobic exercise 5-7 times/week for 20-30 minutes continuously, Benefits of regular exercise, Discussed home walking program, Monitored Outpatient Cardiac Rehab Sedentary Response Code:: Patient communicates acknowledgment Stress Patient Stress Risk Factors Are:: Patient denies stress as a risk factor Recommendations Include:: Identification of stressors, and assessment of coping skills, Stress management techniques Stress Response Code:: Patient communicates acknowledgment
[2020-06-04] MEDS: Morphine 2 MG/ML Syringe IV (15:10)
[2020-06-04] MEDS: Metoprolol Tartrate 50 MG Tablet PO (18:52)
[2020-06-04] MEDS: TICAGRELOR 90 MG TABLET PO (21:13)
[2020-06-04] MEDS: Atorvastatin Calcium 20 MG Tablet PO (21:13)
[2020-06-04] MEDS: traZODone 50 MG Tablet 25 MG PO (21:13)
[2020-06-04] MEDS: amLODIPine 10 MG Tablet PO (21:14)
[2020-06-05 02:56] VITALS: PULSE 61
[2020-06-05 03:10] VITALS: BP 151/78; PULSE 64; RESP 16; TEMP 36.6; O2SAT 97
[2020-06-05 06:41] LABS: Hematocrit 41.7 % (37-47); Hemoglobin 13.8 g/dL (12.0-15.0); Mean Corp Hgb Conc 33.1 g/dL (32-36); Mean Corpuscular Hgb 29.2 pg (27.0-32.0); Mean Corpuscular Volume 88.2 fL (81-99); Mean Platelet Vol. 9.7 fl (6.2-12.0); Platelet Count 242 K/mm3 (150-450); RBC Distribution Width CV 12.9 % (11.6-14.6); RBC Distribution Width SD 42.1 fl (35.1-43.9); Red Blood Count 4.73 M/mm3 (4.2-5.4); White Blood Count 8.7 K/mm3 (4.4-11.0)
[2020-06-05 07:10] LABS: ALB/GLOB Ratio 1.1 RATIO (0.9-2.4); AST(SGOT) 10 U/L (15-37); Alanine Aminotransfer ALT/SGPT 21 U/L (13-56); Albumin, Serum 3.4 g/dL (3.2-5.0); Alkaline Phosphatase 73 U/L (45-117); Anion Gap 4 (5-15); BUN 12 mg/dL (7-18); BUN/Creat Ratio 20.5 RATIO (10-20); Calcium,Total 8.9 mg/dL (8.5-10.1); Chloride 109 mmol/L (98-107); Creatinine, Serum 0.58 mg/dL (0.55-1.02); EST Glomerular Filtration Rate 113 mL/min (>60); Est Glom Filt Rate - Afr Amer 137 mL/min (>60); Estimated Creatinine Clearance 76.87 ml/min; Glucose 104 mg/dL (74-106); Potassium 3.8 mmol/L (3.5-5.1); Protein, Total 6.4 g/dL (6.4-8.2); Sodium Level 139 mmol/L (136-145)
[2020-06-05 07:31] VITALS: PULSE 72
[2020-06-05 08:43] VITALS: BP 132/74; PULSE 83
[2020-06-05] MEDS: Aspirin E.C. 81 MG Tablet PO (08:43)
[2020-06-05] MEDS: TICAGRELOR 90 MG TABLET PO (08:43)
[2020-06-05] MEDS: Metoprolol Tartrate 50 MG Tablet PO (08:43)
[2020-06-05] MEDS: Lisinopril 20 MG Tablet PO (08:44)
[2020-06-05 09:00] VITALS: BP 132/74; PULSE 83; RESP 18; TEMP 36.7; O2SAT 99
[2020-06-05 09:10] VITALS: RESP 18
--- NOTE | 2020-06-05 10:00 | EKG12_ITS ---
Test Reason : AM EKG Blood Pressure : / mmHG Vent. Rate : 067 BPM Atrial Rate : 067 BPM P-R Int : 168 ms QRS Dur : 100 ms QT Int : 412 ms P-R-T Axes : 036 -25 -06 degrees QTc Int : 435 ms Normal sinus rhythm Voltage criteria for left ventricular hypertrophy Abnormal ECG When compared with ECG of 04-JUN-2020 13:45, MANUAL COMPARISON REQUIRED, DATA IS UNCONFIRMED Confirmed by BREE AMRKS, RUBY ([id number]), graphic editor LUANNE DUMONT ([id number]) on 06/09/2020 12:40:58 PM Referred By: Bebe Tsai Confirmed By:RUBY GIRON MD
--- NOTE | 2020-06-05 10:19 | CASEMGMT ---
RICK PAUL NOTE: To room to talk with pt. Pt denies having any concerns w/going home @ discharge. Denies needs. Pt already on Brilinta prior to this admission and pt states [employer] covers the cost of it. Dalia ALEGREN RICK CM
--- NOTE | 2020-06-05 13:08 | PN_ITS ---
Progress Note Discharge summary: Date of admission: 06/04/2020 Date of discharge: 06/05/2020 Reason for the hospital visit: Elective scheduled percutaneous coronary angioplasty and stenting to LAD Procedures performed: PCI to LAD Hospital course: Patient tolerated the procedure well and had an uneventful hospital course. Disposition: Home Follow-up: Patient will follow-up with primary digital solution architect as an outpatient. Condition at time of discharge: Stable STROKE Vital Signs/Narrative: Vital Signs Resp 06/05/20 09:10 18
--- NOTE | 2020-06-05 13:29 | DCINST_ITS ---
You will use the following diet at home:: Cardiac Discharge Activity: - - Don't lift anything over 5lbs with your right hand for 48 hrs after the procedure Return to work on:: 06/10/20 May resume sexual activity in: No Restrictions Call your doctor if your incision/area has: Continuous Slow Oozing, Sudden Increased Bleeding, Increased Pain/ Swelling, Increased Redness, Swelling at the incision site Call your doctor if you observe: Fever of 101 or Higher, Coldness, Increased Pain, Numbness or Tingling, Change in Color, Shortness of breath, Dizziness, Fainting spells, Swelling in the ankles, Chest pain, Increased palpitations (irregular heartbeat) Allergies/Adverse Reactions: Allergies erythromycin base Allergy (Verified 05/14/20 07:55) Hives Sulfa (Sulfonamide Antibiotics) Allergy (Verified 05/14/20 07:55) Hives Medications to take at Discharge Amlodipine [Norvasc] 10 mg PO DAILY 05/29/19 traZODone [Desyrel] 25 mg PO QHS 04/30/20 Aspirin E.C. [Ecotrin] 81 mg PO DAILY@0800 #90 tab 05/16/20 Atorvastatin Calcium [Lipitor] 20 mg PO QHS #90 tab 05/16/20 Lisinopril [Zestril] 20 mg PO DAILY #90 tab 05/16/20 Metoprolol Tartrate [Lopressor (beta rangel)] 50 mg PO BID #90 tab 05/16/20 Ticagrelor [Brilinta] 90 mg PO BID #90 tab 05/16/20 Primary Care Physician: [facility] Sheyla Infante [Primary Care Provider] - Test Results: Test results from this visit will be discussed in further detail at your follow- up appointment, if applicable. Please Follow Up With: Bebe Tsai MD Proposed Discharge Date: 06/05/20
--- NOTE | 2020-06-05 13:30 | PHA.DC.MR ---
Pharmacy Service has performed discharge medication reconciliation for this patient. The patient's discharge medication list was reviewed for discrepancies and discrepancies were resolved. Home Medications Amlodipine [Norvasc] 10 mg PO DAILY 05/29/19 traZODone [Desyrel] 25 mg PO QHS 04/30/20 Aspirin E.C. [Ecotrin] 81 mg PO DAILY@0800 #90 tab 05/16/20 Atorvastatin Calcium [Lipitor] 20 mg PO QHS #90 tab 05/16/20 Lisinopril [Zestril] 20 mg PO DAILY #90 tab 05/16/20 Metoprolol Tartrate [Lopressor (beta rangel)] 50 mg PO BID #90 tab 05/16/20 Ticagrelor [Brilinta] 90 mg PO BID #90 tab 05/16/20
== END 2020-06-05 12:52 | disposition home or self-care (01) ==
LOC: CLSP 09:49 → PCU 06-05 07:07
PROVIDERS: Referring Provider Specialist; Visit Provider Specialist
DX: I25.110 Atherosclerotic heart disease of native coronary artery with unstable angina pectoris (principal); I10 Essential (primary) hypertension; F32.9 Major depressive disorder, single episode, unspecified; F17.210 Nicotine dependence, cigarettes, uncomplicated; R94.39 Abnormal result of other cardiovascular function study; Z79.899 Other long term (current) drug therapy; Z79.82 Long term (current) use of aspirin; Z82.49 Family history of ischemic heart disease and other diseases of the circulatory system
CPT/HCPCS: 36415; 80053; 85027; 92928; 93005; 99152; 99153; J7030; J7040; Q9967; A4216; C1725; C1769; C1874; C1887; C1894; C9600

== ENCOUNTER → 2020-08-11 18:27 | Outpatient (CLI) | payer MEDICAID, SELFPAY ==
[2020-07-13 11:35] VITALS: BMI 41.0
== END ==
PROVIDERS: Referring Provider Family Medicine; Visit Provider Family Medicine
DX: Z20.828 Contact with and (suspected) exposure to other viral communicable diseases (principal); J02.9 Acute pharyngitis, unspecified; J06.9 Acute upper respiratory infection, unspecified
CPT/HCPCS: 87635; C9803; U0003

== ENCOUNTER → 2020-12-21 15:26 | Outpatient (CLI) | payer MEDICAID, SELFPAY ==
[2020-07-13 11:35] VITALS: BMI 41.0
[2020-12-21 16:50] LABS: Amphetamine Urine VISTA NEGATIVE (<1000 ng/mL); Barbiturate Urine VISTA NEGATIVE (< 200 ng/mL); Benzodiazepine Urine VISTA NEGATIVE (< 200 ng/mL); Cocaine Urine VISTA NEGATIVE (< 300 ng/mL); Ecstacy Urine VISTA NEGATIVE (< 500 ng/mL); Methadone Urine VISTA NEGATIVE (< 300 ng/mL); PCP Urine VISTA NEGATIVE (< 25 ng/mL); THC Urine VISTA NEGATIVE (< 50 ng/mL); Vista UDS pH Range 5
== END ==
PROVIDERS: Referring Provider Anesthesiology Pain Medicine; Visit Provider Anesthesiology Pain Medicine
DX: F11.21 Opioid dependence, in remission (principal)
CPT/HCPCS: 80307

== ENCOUNTER → 2021-02-12 09:23 | Outpatient (CLI) | payer MEDICAID, SELFPAY ==
[2020-07-13 11:35] VITALS: BMI 41.0
[2021-02-12 10:44] LABS: Amphetamine Urine VISTA NEGATIVE (<1000 ng/mL); Barbiturate Urine VISTA NEGATIVE (< 200 ng/mL); Benzodiazepine Urine VISTA NEGATIVE (< 200 ng/mL); Cocaine Urine VISTA NEGATIVE (< 300 ng/mL); Ecstacy Urine VISTA NEGATIVE (< 500 ng/mL); Methadone Urine VISTA NEGATIVE (< 300 ng/mL); PCP Urine VISTA NEGATIVE (< 25 ng/mL); THC Urine VISTA NEGATIVE (< 50 ng/mL); Vista UDS pH Range 6
== END ==
PROVIDERS: Referring Provider Anesthesiology Pain Medicine; Visit Provider Anesthesiology Pain Medicine
DX: F11.20 Opioid dependence, uncomplicated (principal)
CPT/HCPCS: 80307

== ENCOUNTER 2021-04-08 18:42 | Emergency (ER) | payer MEDICAID, SELFPAY ==
[2021-02-22 10:53] VITALS: BMI 41.0
[2021-04-08 18:43] VITALS: BP 166/97; PULSE 82; RESP 16; TEMP 35.8; O2SAT 99; BMI 41.3
[2021-04-08 18:46] VITALS: BP 166/97; PULSE 82; RESP 16; TEMP 35.8; O2SAT 99
--- NOTE | 2021-04-08 19:55 | EX.ED.DYSGE1 ---
HPI History of Present Illness Chief Complaint: Dental Narrative Narrative: Patient presenting with right jaw pain. She states this happened when she was chewing earlier today. She felt a pop and has had pain since then. She is in pain management and takes Ultram regularly. Patient states that she recently had a wisdom tooth pulled which was infected and she states it decayed the bone in her dentist told her that she should be cautious chewing as she could possibly sustain a fracture. She was told that if she has increased pain in this area that she should get an x-ray of the mandible. Patient not having any trouble opening and closing her jaw. She is tolerating her own secretions. No dental pain. [facility] Medical History Atherosclerosis of coronary artery of ken[place] heart without angina pectoris Cardiomyopathy, ischemic DDD (degenerative disc disease) Essential hypertension History of chronic back pain Home Medications aspirin 81 mg PO DAILY@0800 #90 tab 05/16/20 [Rx Last Taken 06/04/20] amlodipine 10 mg tablet 10 mg PO DAILY #90 tab 07/27/20 [Rx Last Taken Unknown] atorvastatin 20 mg tablet 20 mg PO QHS #90 tab 08/10/20 [Rx Last Taken Unknown] lisinopril 20 mg tablet 20 mg PO DAILY #90 tab 08/10/20 [Rx Last Taken Unknown] ticagrelor 90 mg tablet 90 mg PO BID #180 tab 08/11/20 [Rx Last Taken Unknown] metoprolol tartrate 50 mg tablet 50 mg PO BID #180 tab 08/17/20 [Rx Last Taken Unknown] gabapentin 300 mg capsule 300 mg PO BID 02/22/21 [History Last Taken Unknown] tramadol 50 mg tablet 50 mg PO TID PRN 02/22/21 [History Last Taken Unknown] trazodone 50 mg tablet 50 mg PO QHS tab 02/22/21 [History Last Taken Unknown] Allergy/AdvReac Type Severity Reaction Status Date / Time erythromycin base Allergy Hives Verified 02/22/21 10:49 Sulfa (Sulfonamide Allergy Hives Verified 02/22/21 10:49 Antibiotics) Family History Mother Diabetes CAD (coronary artery disease) Father Thyroid disorder Surgical History History of arthroscopic knee surgery (~2017) History of coronary artery stent placement (05/15/20) History of salpingectomy Social History Smoking Status: Current every day smoker tobacco type: cigarettes quit status: considering quitting alcohol intake: never substance use type: does not use caffeine: Yes Type: coffee Number of servings: 3 and tea ROS ROS ED Constitutional Constitutional ED: Denies chills, fever(s) or sweats Eyes Eyes: Denies blurry vision or change in vision ENT ENT ED: Reports other Details: Right jaw pain. ; Denies ear pain or sore throat Cardiovascular Cardiovascular: Denies chest pain, palpitations or racing heartbeat Respiratory/Chest Respiratory/Chest: Denies cough, dyspnea or sputum Gastrointestinal Gastrointestinal: Denies abdominal pain, constipation, diarrhea, nausea or vomiting Genitourinary Genitourinary ED: Denies dysuria, hematuria or urinary frequency Musculoskeletal Musculoskeletal: Denies arthralgias, myalgias or neck pain Integumentary Denies abscess, Abrasions or rash Neurologic Neurologic: Denies headache(s), paresthesias or weakness Psychiatric Psychiatric: Denies anxiety, depression, suicidal ideation or suicidal thoughts Endocrine Endocrinology: Denies polydipsia or polyuria EXAM Physical Exam Const Vital Signs: 04/08/21 18:43 04/08/21 18:46 Temperature 96.5 F L 96.5 F L Temperature Source Temporal Temporal Pulse Rate 82 82 Respiratory Rate 16 16 Blood Pressure 166/97 H 166/97 H Blood Pressure Mean 120 120 Pulse Ox 99 99 Oxygen Delivery Method Room Air Room Air Positive obese General Appearance ED: NAD Nutritional Appearance: obese HEENT Reports moist mucous membranes HEENT Narrative: Patient edentulous on the side of her mouth on the mandible. [place] mucosa and gingiva appear normal. No tongue swelling. No signs of jaw malocclusion. No popping with opening and closing of the jaw, but there is pain with opening closing of the jaw. No temporal pain on the right. Negative for trauma Eyes PERRL and EOMs intact bilaterally Resp normal respiratory effort and clear to auscultation bilaterally Cardio regular rate and regular rhythm Neuro oriented x3 and CN's II-XII intact bilaterally Sensorium / Orientation: alert Psych mental status grossly normal Skin no rashes or lesions noted and no wounds MDM MDM MDM Narrative Medical decision making narrative: Patient presenting with right jaw pain which is acute. I did give the patient her home medication of tramadol 50 mg p.o. I obtain imaging of the mandible on my interpretation of this there is no fracture or subluxation. The radiologist does feel reads x-ray as possibly periapical or dentigerous cyst versus ameloblastoma versus less likely abscess. I do not find any signs of abscess on exam. Patient counseled on findings and is recommend she follow-up with her dental professional. I do not believe she needs to be acutely admitted for this. Her pain is controlled at this time. Patient stable for discharge. Impression: #1 right jaw pain Lab Data Attestation: I reviewed the patient's lab results. Radiography Diagnostic Testing: Radiology Impression Mandible X-Ray 04/08/21 20:12 IMPRESSION: Lucency suggesting cystic lesion of the mandible on the right suggesting periapical or dentigerous cyst or ameloblastoma versus less likely abscess. No fracture identified. Electronically Signed: Rahat Nguyen MD at 21:32 EDT , Service support , Discharge Plan Triage Chief Complaint: Dental ED Provider: Lazaro Driscoll Dx/Rx/DC Orders Instructions: ED TMJ Syndrome Prescriptions: No Action gabapentin 300 mg capsule 300 mg PO BID RF: 0 tramadol 50 mg tablet 50 mg PO TID PRNRF: 0 trazodone 50 mg tablet 50 mg PO QHS RF: 0 aspirin 81 MG tablet 81 mg PO DAILY@0800 Qty: 90 RF: 0 amlodipine 10 mg tablet 10 mg PO DAILY Qty: 90 RF: 3 atorvastatin 20 mg tablet 20 mg PO QHS Qty: 90 RF: 3 lisinopril 20 mg tablet 20 mg PO DAILY Qty: 90 RF: 3 ticagrelor 90 mg tablet 90 mg PO BID Qty: 180 RF: 3 metoprolol tartrate 50 mg tablet 50 mg PO BID Qty: 180 RF: 3 Primary Care Provider: [facility] Sheyla Infante Referrals: [facility] Sheyla Infante [Primary Care Provider] - Disposition Disposition: Home, Self Care Discharge Date/Time: 04/08/21 22:50
--- NOTE | 2021-04-08 20:12 | RAD_ITS ---
STUDY: X-RAY - MANDIBLE (COMPLETE) REASON FOR EXAM: Female, 56 years old. Right jaw pain TECHNIQUE: Frontal and lateral and Felisa view(s) of the mandible were obtained. COMPARISON: None. FINDINGS: There is 3.6 x 2.6 cm lucency of the angle of the right mandible. Normal visualized right temporomandibular joint. Normal visualized left temporomandibular joint. The remaining visualized osseous structures are normal. The soft tissue structures are unremarkable. RAD/Mandible Min 4 Views IMPRESSION: Lucency suggesting cystic lesion of the mandible on the right suggesting periapical or dentigerous cyst or ameloblastoma versus less likely abscess. No fracture identified. Electronically Signed: Rahat Nguyen MD at 21:32 EDT , Service support ,
[2021-04-08] MEDS: traMADol 50 MG Tablet PO (20:48)
== END 2021-04-08 22:50 | disposition home or self-care (01) ==
PROVIDERS: Emergency Provider Student in an Organized Health Care Education/Training Program
DX: R68.84 Jaw pain (principal); E66.9 Obesity, unspecified; I25.10 Atherosclerotic heart disease of native coronary artery without angina pectoris; F17.210 Nicotine dependence, cigarettes, uncomplicated
CPT/HCPCS: 70110; 99283

== ENCOUNTER → 2022-05-02 | Outpatient (CLI) | payer MEDICAID, SELFPAY ==
[2022-05-02 10:48] LABS: International Normalized Ratio 0.9
== END | disposition home or self-care (01) ==
LOC: LABSPEC 10:29
PROVIDERS: Visit Provider Nurse Practitioner Family
DX: R31.0 Gross hematuria (principal)
CPT/HCPCS: 85610

== ENCOUNTER → 2022-05-19 | Outpatient (CLI) | payer MEDICAID, SELFPAY ==
--- NOTE | 2022-05-19 12:56 | ECHOCS_ITS ---
Reason For Study: HTN Procedure This was a 2D Doppler, Color Flow transthoracic echocardiogram. The study was technically difficult. Due to body habitus. Contrast injection was performed. Exam performed in department. Left Ventricle Normal LV size. Left ventricular systolic function is normal. The estimated ejection fraction is 65 %. Stage 1 diastolic dysfunction. No regional wall motion abnormalities noted. Right Ventricle Normal RV size. Normal systolic function. Atria Normal left atrium. Normal right atrium. Mitral Valve Normal mitral valve. Tricuspid Valve The tricuspid valve is not well visualized. Mild tricuspid valve insufficiency. Aortic Valve The aortic valve is not well visualized. Pulmonic Valve The pulmonic valve is not well visualized. Great Vessels Normal aortic root. Pericardium/Pleural No pericardial effusion. Medication 22 gauge I.V. with prn adaptor inserted into right arm. Diluted definity 5.0ml given slow IV push to enhance endocardial definition. MMode/2D Measurements & Calculations RVDd: 3.4 cm Ao root diam: 3.0 cm LAV(MOD-bp): 67.4 ml LAV(MOD-bp) Indexed: 35.2 ml/m2 LAV(MOD-sp2): 64.4 ml LAV(MOD-sp4): 67.8 ml LA dimension(2D): 3.8 cm LA A4 area: 21.9 cm2 RA A4 area: 14.6 cm2 Time Measurements MV dec time: 0.26 sec Doppler Measurements & Calculations MV E max randall: 109.0 cm/sec Lat Peak E' Randall: 6.4 cm/sec Med Peak E' Randall: 6.3 cm/sec MV A max randall: 118.6 cm/sec E/E' lat: 17.0 E/E' med: 17.4 MV E/A: 0.92 Ao V2 max: 225.6 cm/sec LV V1 max: 107.2 cm/sec MV dec slope: 416.6 cm/sec2 Ao max P.4 mmHg LV V1 max P.6 mmHg Ao V2 mean: 151.9 cm/sec LV V1 mean P.8 mmHg Ao mean P.8 mmHg LV V1 mean: 81.6 cm/sec Ao V2 VTI: 50.5 cm LV V1 VTI: 26.8 cm PA V2 max: 110.0 cm/sec TR max randall: 200.5 cm/sec TR max P.1 mmHg ECHO/Echo Complete W/ Contrast Interpretation Summary Normal LV size. Left ventricular systolic function is normal. The estimated ejection fraction is 65 %. Stage 1 diastolic dysfunction. Contrast injection was performed. Ordering Physician: Cyrus Luis Referring Physician: Timo Vila Performed By: Joann Horton, RDFAHAD, RVT
--- NOTE | 2022-05-19 12:58 | CT_ITS ---
STUDY: CT ABDOMEN WITH CONTRAST REASON FOR EXAM: Female, 57 years old. ABN XRAY RADIATION DOSAGE (If Supplied By Facility): CTDIvol = ( 18.31 ) mGy, DLP = ( 583.36 ) mGycm TECHNIQUE: Transaxial images were obtained post I.V. administration of IV 100mL Isovue-300, and without oral contrast. Sagittal and coronal images were reconstructed. Individualized dose optimization techniques were used for this CT. COMPARISON: None. FINDINGS: The visualized lung bases are unremarkable. Coronary artery calcification. Normal liver. Normal gallbladder and extrahepatic biliary system. Normal spleen. Normal pancreas. There is a 2.5 cm low density nodule in the right adrenal gland. A similar appearing nodule in the left adrenal gland measuring 2.4 cm is seen. These most likely represent bilateral adrenal adenomas. Bilateral renal cysts. Mild to moderate degree of atrophy of the left kidney. Normal visualized stomach. Normal small intestine. Normal colon. The appendix is visualized and appears normal. There is diffuse atherosclerotic calcification of the abdominal aorta, without a demonstrated aneurysm. Normal inferior vena cava. Normal retroperitoneum. Normal abdominal wall. There are degenerative changes of the visualized lumbar spine. CT/Abdomen WITH IV Contrast IMPRESSION: Bilateral low-density nodules of the adrenal glands suggestive of bilateral adenomas. Atrophy of the left kidney with bilateral renal cysts. Electronically Signed: Anselmo Cobian MD at 15:34 EDT ,
[2022-05-20 07:35] LABS: CREATININE FINGERSTICK 0.9 mg/dL (0.55-1.02); EGFR FINGERSTICK > 60.0000 mL/min (>60)
== END | disposition home or self-care (01) ==
LOC: CVS 12:52 → CT 12:54
PROVIDERS: Referring Provider Family Medicine; Visit Provider Family Medicine
DX: I10 Essential (primary) hypertension (principal); I25.10 Atherosclerotic heart disease of native coronary artery without angina pectoris; R93.422 Abnormal radiologic findings on diagnostic imaging of left kidney
CPT/HCPCS: 93306; 74160; Q9957; Q9967; A4216; C8929

== ENCOUNTER → 2022-05-20 | Outpatient (CLI) | payer MEDICAID, SELFPAY ==
--- NOTE | 2022-05-20 13:00 | CYSPIN_PTH ---
PATIENT: ANIRUDH CHAVES LOC: [facility] U#:[id number] AGE/SX: 57/F ROOM: RE05/20/[address]: Dr. Sariah Bryna MD : 1965 BED: DIS: 05/20/2022 SPEC #: [id number] RECD: 05/23/22 08:34 STATUS: JOSR MALCOLM #: [id number] HOMAR: 05/20/22 13:[address]: Sariah Bryan DEPT: CYTOLOGY RECD BY: Norma Ocasio ENTERED: 05/23/22 08:34 SP TYPE: CYSPIN FL OTHR DR: She[facility] Tissues: Urine Procedures: Pap Stain (control) Special Stain Group II Cytospin Fluid HEADER OPERATION: Not noted PRE-OP DIAGNOSIS: Gross hematuria TISSUE SUBMITTED: Urine for cytology DIAGNOSIS CYTOLOGY Urine for cytology (cytospin): Negative for malignant cells (Mira Category II). See comment. KIKA:edrek 05/23/2022 COMMENT The specimen predominantly consists of squamous epithelial cells. RBCs are also noted. Numerous crystals are also present in the specimen. The Mira System for urine cytology diagnostic categorization was used in the evaluation of this case. CYTOLOGY STUDY Slides are reviewed. CYTOLOGY GROSS Received is 50 ml of yellow cloudy fluid labeled with the patient's name and and designated per the requisition as urine. Submitted for cytology preparation. / derek 05/23/2022 TC:5 CPT: 39725
[2022-05-20 17:18] LABS: Cytology, Body Fluid / CSF SEE PATHOLOGY REPORT
== END | disposition home or self-care (01) ==
PROVIDERS: Visit Provider Urology
DX: R31.0 Gross hematuria (principal)
CPT/HCPCS: 88108; 88313

== ENCOUNTER → 2022-06-28 | Outpatient (CLI) | payer MEDICAID, SELFPAY ==
--- NOTE | 2022-06-28 14:38 | CT_ITS ---
STUDY: CT ABDOMEN AND PELVIS WITH AND WITHOUT CONTRAST REASON FOR EXAM: Female, 57 years old. FLANK PAIN RADIATION DOSAGE (If Supplied By Facility): CTDIvol = ( 25.91 ) mGy, DLP = ( 3812.56 ) mGycm TECHNIQUE: Transaxial images were obtained from the dome of the diaphragm to the symphysis pubis without oral contrast. IV 100mL Isovue-370 was administered. Sagittal and coronal images were reconstructed. Individualized dose optimization techniques were used for this CT. COMPARISON: 05/19/2022 FINDINGS: The visualized lung bases are unremarkable. The visualized portions of the heart are within normal limits. There is elongation of the right lobe of liver which may be consistent with normal variant. Attenuation is homogeneous without mass or bile duct dilatation. Normal gallbladder and extrahepatic biliary system. Normal spleen. Normal pancreas. Bilateral low-attenuation adrenal nodules are noted measuring approximately 2.5 cm likely benign. No evidence for renal obstruction. Mild multifocal cortical scarring left kidney consistent with chronic renal infection. There is a small simple cyst in each kidney which will not require additional imaging.. Normal visualized stomach. Mild nonspecific ileus diffuse fecal retention in the colon.. The appendix is visualized and appears normal. Mild atherosclerotic changes of the aorta without evidence for aneurysm.. Normal inferior vena cava. Normal retroperitoneum. Normal urinary bladder. Mild enlargement bilateral inguinal nodes the largest measuring 1 to 1.5 cm of uncertain clinical significance. Lumbar spine demonstrates degenerative change. CT/CT Abd/Pelvis W/WO Contrast IMPRESSION: Bilateral adrenal nodules likely benign stable since previous exam.. Small bilateral renal cysts. No evidence for obstruction or ureteral calculus. Nonspecific ileus with diffuse fecal retention in the colon. Mild inguinal adenopathy of uncertain clinical significance. Clinical correlation recommended Electronically Signed: Piero Worrell MD at 16:49 EDT ,
[2022-06-28 15:06] LABS: CREATININE FINGERSTICK < 0.9 mg/dL (0.55-1.02); EGFR FINGERSTICK > 60.0000 mL/min (>60)
== END | disposition home or self-care (01) ==
LOC: CT 14:36
PROVIDERS: Referring Provider Urology; Visit Provider Urology
DX: R31.0 Gross hematuria (principal); R10.9 Unspecified abdominal pain
CPT/HCPCS: 74178; Q9967

== ENCOUNTER → 2022-08-10 | Outpatient (CLI) | payer MEDICAID, SELFPAY ==
[2022-08-10 10:27] LABS: Absolute Lymphocyte Count 2.88 X10^3/uL (0.83-4.51); Absolute Neutrophil Count 6.2 X10^3/uL (2.0-7.7); Basophil# 0.13 X10^3/uL; Basophil% 1.3 % (0-1); Eosinophil# 0.38 X10^3/uL; Eosinophils% 3.7 % (0-5); Hematocrit 47.2 % (37-47); Hemoglobin 15.4 g/dL (12.0-15.0); Lymphocyte # 2.88 X10^3/ul (0.83-4.51); Lymphocyte % 28.1 % (19-41); Mean Corp Hgb Conc 32.6 g/dL (32-36); Mean Corpuscular Hgb 30.1 pg (27.0-32.0); Mean Corpuscular Volume 92.2 fL (81-99); Mean Platelet Vol. 10.2 fl (6.2-12.0); Monocyte# 0.64 X10^3/uL; Monocyte% 6.2 % (0-10); NRBC Flagged by Analyzer 0 % (0-5); Neutrophil # 6.19 X10^3/uL (2.7-7.7); Neutrophil % 60.4 % (47-70); Platelet Count 328 K/mm3 (150-450); RBC Distribution Width CV 13.5 % (11.6-14.6); Red Blood Count 5.12 M/mm3 (4.2-5.4); White Blood Count 10.3 K/mm3 (4.4-11.0)
[2022-08-10 11:05] LABS: ALB/GLOB Ratio 1.1 RATIO (0.9-2.4); AST(SGOT) 11 U/L (15-37); Alanine Aminotransfer ALT/SGPT 33 U/L (13-56); Albumin, Serum 3.7 g/dL (3.2-5.0); Alkaline Phosphatase 79 U/L (45-117); Anion Gap 7 (5-15); BUN 18 mg/dL (7-18); BUN/Creat Ratio 21.2 RATIO (10-20); Calcium,Total 9.4 mg/dL (8.5-10.1); Chloride 106 mmol/L (98-107); Creatinine, Serum 0.85 mg/dL (0.55-1.02); EST Glomerular Filtration Rate 73 mL/min (>60); Est Glom Filt Rate - Afr Amer 88 mL/min (>60); Globulin 3.4 g/dL (2.2-4.2); Glucose 109 mg/dL (74-106); Magnesium 2.2 mg/dL (1.6-2.6); Potassium 4.4 mmol/L (3.5-5.1); Protein, Total 7.1 g/dL (6.4-8.2); Sodium Level 138 mmol/L (136-145)
== END | disposition home or self-care (01) ==
PROVIDERS: Visit Provider Nurse Practitioner Family
DX: R55 Syncope and collapse (principal)
CPT/HCPCS: 36415; 80053; 83735; 85025

== ENCOUNTER → 2022-09-20 | Outpatient (CLI) | payer MEDICAID, SELFPAY ==
--- NOTE | 2022-09-20 07:35 | CT_ITS ---
INDICATION: SYNCOPE EXAMINATION: CT BRAIN - CT Head or Brain W/O Contrast Injection TECHNIQUE: Multiple axial images were obtained of the head without intravenous contrast. A radiation dose optimization technique was used for this scan. IV Contrast dosage and agent: None. COMPARISON: FINDINGS: BRAIN PARENCHYMA: No intra- or extra-axial hemorrhage. No evidence of acute infarct. No intracranial mass or mass effect. There is preservation of the gordillo/white matter interface. Posterior fossa structures are unremarkable. CSF SPACES: Appropriate for age. No hydrocephalus. Basal cisterns are patent. CALVARIUM, SKULL BASE, PARANASAL SINUSES AND MASTOID AIR CELLS: Clear. No discrete lytic or blastic abnormalities. ORBITS: Both globes, extraocular muscles, optic nerves and retrobulbar fat appear unremarkable. CT/Brain/Head without Contrast IMPRESSION: No acute intracranial process. Electronically Signed: Sophia Valdez MD at 8:14 EST ,
--- NOTE | 2022-09-20 10:00 | TELEMED_ITS ---
[facility] has confirmed receipt of a request for visit. This document confirms receipt of the order initiating the consult. To find the results of the consultation, please view the patient's reports for the scanned Telemed Consult.
== END | disposition home or self-care (01) ==
LOC: CT 07:35
PROVIDERS: Visit Provider Nurse Practitioner Family
DX: R55 Syncope and collapse (principal)
CPT/HCPCS: 70450; 95819